=== PATIENT | male | born 1955 | race Caucasian/White ===

== ENCOUNTER 2016-05-12 15:55 | Inpatient (IN) ==
[2016-05-12] MEDS ORDERED: MAGNESIUM SULF RIDER 2 GM in PREMIX 1 EACH IV PRN ×2 (16:07→17:23)
[2016-05-12] MEDS ORDERED: MAGNESIUM SULF RIDER 4 GM in PREMIX 1 EACH IV PRN (16:07)
[2016-05-12] MEDS ORDERED: DEXTROSE 50% 25 GM/50 ML VIAL IV PRN (16:07)
[2016-05-12] MEDS ORDERED: GLUCAGON 1 MG VIAL IM PRN (16:07)
[2016-05-12] MEDS ORDERED: ONDANSETRON 4 MG/2 ML VIAL IV PRN (16:07)
[2016-05-12 17:09] LABS: Basophils # 0.1 10*3/uL (0.0-0.2); Basophils % 0.7 % (0.0-0.8); Eosinophils # 0.8 10*3/uL (0.0-0.87); Eosinophils % 9.6 % (0.00-10.9); Hematocrit 37.8 VOL% (42.0-52.0); Hemoglobin 12.4 GM/DL (14.0-18.0); Immature Granulocytes % 0.2 %; Immature Granulocytes Absolute 0.02 #; Lymphocytes # 2.4 10*3/uL (1.4-4.0); Lymphocytes % 28.8 % (21.2-54.2); Mean Corpuscular HGB Conc 32.8 GM/DL (32-36); Mean Corpuscular Hemoglobin 28 PG (27-34); Mean Corpuscular Volume 86.3 FL (87-102); Mean Platelet Volume 9.7 FL (9.6-12.0); Monocytes # 0.5 10*3/uL (0.11-0.8); Monocytes % 6.4 % (1.7-12.7); Neutrophils # 4.5 10*3/uL (1.4-7.4); Neutrophils % 54.3 % (38.7-73.9); Platelet Count 187 T/CUMM (130-400); Red Blood Count 4.38 MC/CUMM (3.8-5.5); Red Cell Distribution Width 13.3 % (9.3-17.3); White Blood Count 8.3 T/CUMM (4-12)
[2016-05-12] MEDS ORDERED: NITROGLYCERIN SL 0.4 MG TABLET SL PRN (17:21)
[2016-05-12] MEDS ORDERED: IBUPROFEN 600 MG TABLET PO PRN (17:21)
[2016-05-12] MEDS ORDERED: POTASSIUM CHLORIDE RIDER 10 MEQ in PREMIX 1 EACH IV PRN (17:23)
[2016-05-12] MEDS ORDERED: diphenhydrAMINE CAP 50 MG CAPSULE PO ONE (17:24)
[2016-05-12] MEDS ORDERED: DIAZEPAM 5 MG TABLET PO ONE (17:25)
[2016-05-12] MEDS: ENOXAPARIN 100 MG/ML SYRINGE SUBCUT SCH (17:25)
[2016-05-12] MEDS ORDERED: SODIUM CHLORIDE 0.45% 1,000 ML IV SCH (17:30)
[2016-05-12] MEDS: MORPHINE 2 MG/1 ML SYRINGE IV PRN ×2 (17:38→21:32)
[2016-05-12] MEDS: SODIUM CHLORIDE 0.9% 1,000 ML IV SCH (17:42)
[2016-05-12 17:53] LABS: Bilirubin,Total 0.6 MG/DL (0.2-1.0); Calcium 8.8 MG/DL (8.5-10.1); Osmolality,Calculated 307.4 MOS/KG (273-304); Potassium 4.8 MMOL/L (3.5-5.1)
[2016-05-12 17:56] LABS: Troponin I Only 0.073 NG/ML (0.00-0.045)
--- NOTE | 2016-05-12 19:04 | EKG Report ---
Stationary ECG Study [facility] Test Date: 05/12/2016 7:03:14 PM Pat Name: FREDERIC YEAGER Department: Room: 294 Gender: M Title Agent: STEPHANIE : 1955 Requested by: Rosas Jeffrey Order Number: [id number] Reading MD: CARMEN JOSÉ Intervals [place] Rate: 60 P: 44 WV: 194 QRS: 9 QRSD: 101 T: 136 QT: 408 QTc: 409 Interpretive Statements SINUS RHYTHM ST DEVIATION AND MODERATE T-WAVE ABNORMALITY, CONSIDER LATERAL ISCHEMIA Electronically Signed On 05-13-16 06:31:23 CDT by CARMEN JOSÉ [email or web address]
--- NOTE | 2016-05-12 19:10 | XRay Report ---
XR chest 1V portable Indication: SOB, chest pain Comparison: Chest x-ray dated October 30, 2015 Technique: Frontal views of the chest Findings: Heart size appears within normal limits. Chronic change of the lungs without focal consolidation, pleural effusion, or pneumothorax. Osseous and surrounding soft tissue structures appear grossly unchanged. IMPRESSION: No acute cardiopulmonary process demonstrated. PROCEDURE INTERPRETED AT [facility] DEPARTMENT OF RADIOLOGY Final Report Signed by: Dr Adriano Martin
[2016-05-12] MEDS: ALBUTEROL/IPRATROPIUM 3 ML NEB RESP TX SCH (19:12)
[2016-05-12] MEDS: BUDESONIDE 0.5 MG/2 ML NEB RESP TX SCH (19:12)
[2016-05-12] MEDS: MONTELUKAST 10 MG TABLET PO SCH (21:34)
[2016-05-12] MEDS: DOCUSATE SODIUM 100 MG CAPSULE PO SCH (21:34)
[2016-05-12] MEDS: ZALEPLON 5 MG CAPSULE PO PRN (21:34)
[2016-05-12] MEDS: ROSUVASTATIN 20 MG TABLET PO SCH (21:34)
[2016-05-12] MEDS: CARVEDILOL 25 MG TABLET PO SCH (21:34)
[2016-05-12] MEDS: PANTOPRAZOLE 40 MG TABLET PO SCH (21:34)
[2016-05-12] MEDS: INSULIN GLARGINE 100 UNIT/ML SUBCUT SCH (21:35)
[2016-05-12] MEDS: INSULIN REGULAR 100 UNIT/ML SUBCUT SCH (21:36)
[2016-05-13] MEDS: ALBUTEROL/IPRATROPIUM 3 ML NEB RESP TX SCH ×4 (00:39→20:58)
[2016-05-13] MEDS: SODIUM CHLORIDE 0.9% 1,000 ML IV SCH ×3 (01:34→21:43)
[2016-05-13] MEDS: MORPHINE 2 MG/1 ML SYRINGE IV PRN ×2 (01:35→10:41)
[2016-05-13 01:54] LABS: Calcium 8.4 MG/DL (8.5-10.1); Osmolality,Calculated 307.1 MOS/KG (273-304); Potassium 4.3 MMOL/L (3.5-5.1)
[2016-05-13 01:58] LABS: Risk Ratio 2.61; VLDL CHOLESTEROL 26.8 MG/DL
--- NOTE | 2016-05-13 07:26 | EKG Report ---
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
[2016-05-13] MEDS: BUDESONIDE 0.5 MG/2 ML NEB RESP TX SCH ×2 (07:50→20:58)
[2016-05-13] MEDS ORDERED: hydrALAZINE 20 MG/1 ML VIAL IV PRN (08:05)
[2016-05-13] MEDS: INSULIN ASPART PROTAMINE/ASPART 70/30 100 UNIT/ML SUBCUT SCH (08:21)
[2016-05-13] MEDS: INSULIN REGULAR 100 UNIT/ML SUBCUT SCH ×4 (08:21→21:42)
--- NOTE | 2016-05-13 08:24 | Cardiology Progress Note ---
Assessment and Plan - Time spent with patient Time spent with patient: Less than 30 minutes (1) CAD (coronary artery disease) Status: Chronic Assessment and plan: Known coronary disease. 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 Herndon. He was admitted directly from clinic yesterday with plans for cardiac catheterization this afternoon for concern of angina. During the night, patient continued to have intermittent episodes of chest fullness radiating to the left arm. Morphine has improved the discomfort. However, this morning the chest discomfort has returned. Located in the left chest area and radiating down the left arm. He did have nausea and vomiting associated with this. He rated the discomfort as a 7 on a scale of 1-10 however at this point it is improved to a 2. Patient's blood pressure is elevated at 170/88. He is being given IV hydralazine now. This morning, he has had full strength aspirin, continue with betablockade, lipid lowering agent, nitrates. He is being prepared for heart catheterization at this time. IVP DYE ALLERGY PROCOTOL in place Last heart catheterization October 23, 2015: 1. LV gram not done. The this was a save contrast of his renal dysfunction.. 2. LVEDP upper is normal at 16 mmHg. 3. No gradient across the aortic valve 4. Right coronary with diffuse atherosclerotic disease 10-20% proximally and up to 50% distally. 5. Left main coronary artery is widely patent. 6. Circumflex artery with 50-60% mid stenosis 7. LAD with a long lesion of 99% and CHRIS 1 flow. Second diagonal with diffuse high-grade stenosis of 90 sent 8. Successful intervention with stenting of the proximal/mid LAD of 99% to 0% residual stenosis and initially CHRIS 1 flow to CHRIS-3 flow. 9. Right compromise widely patent successful Angio-Seal hemostasis. Exam (Progress Note) - Constitutional Vitals: Period Temp Pulse Resp BP Sys/Santiago Pulse Ox Last 24 Hr 96.6 F-98.4 F 58-69 17-20 150-171/61-86 95-100 Exam: General: [Appears well with no apparent distress.] [Pleasant and cooperative. ] [Appears comfortable.] HEENT: [PERRL, normocephalic, atraumatic. Mucous membranes moist. No jaundice noted. Conjunctiva moist and clear, sclerae anicteric] Neck: No JVD/HJR, no thyromegaly or lymphadenopathy noted. No carotid bruit appreciated Cardiac: [Regular rate and rhythm.] [No murmur rub or gallop.] Lungs: [Clear to auscultation without accessory muscle use to assist the respiratory pattern.] Oxygen in use via nasal cannula Abdomen: Soft, bowel sounds normoactive. Nontender and nondistended. No abdominal bruit or thrill noted. No masses noted. Musculoskeletal: No fluid collection. Decreased range of motion is noted. Extremities: No clubbing, cyanosis noted. [ No edema noted.] Upper extremity pulses 2+. Lower extremity pulses 2+. Capillary refill less than 3 seconds. Skin: No unusual lesions or rashes. No skin breakdown appreciated. Neuro: Awake, alert and oriented 3. Moves all extremities well without hemiparesis or paralysis. No essential tremor is appreciated. Result/EKG - Labs CBC & BMP: 05/12/16 16:57 05/13/16 01:02 Lab Results: I have reviewed the past 24 hour labs Labs: Laboratory Results - last 24 hr 05/12/16 05/12/16 05/12/16 16:57 16:57 16:57 WBC 8.3 RBC 4.38 Hgb 12.4 L Hct 37.8 L MCV 86.3 L MCH 28 MCHC 32.8 RDW 13.3 Plt Count 187 MPV 9.7 Neut % (Auto) 54.3 Lymph % (Auto) 28.8 Wise % (Auto) 6.4 Eos % (Auto) 9.6 Baso % (Auto) 0.7 Neut # (Auto) 4.5 Lymph # (Auto) 2.4 Wise # (Auto) 0.5 Eos # (Auto) 0.8 Baso # (Auto) 0.1 Immature Gran % 0.2 Nucleated RBC % 0.0 Immature Gran # 0.02 Nucleated RBCs # 0.00 Sodium 147 H Potassium 4.8 Chloride 110 H Carbon Dioxide 25 Anion Gap 16.8 H BUN 44 H Creatinine 2.60 H GFR Calculation 72 BUN/Creatinine Ratio 16.00 Glucose 182 H POC Glucose Calculated Osmolality 307.4 H Calcium 8.8 Magnesium 2.0 Total Bilirubin 0.60 AST 17 ALT 24 Alkaline Phosphatase 85 Troponin I 0.073 H B-Natriuretic Peptide 103 H Total Protein 7.0 Albumin 4.0 Globulin 3.0 Albumin/Globulin Ratio 1.3 Triglycerides Cholesterol LDL Cholesterol VLDL Cholesterol HDL Cholesterol Heart Disease Risk Ratio 05/12/16 05/12/16 05/13/16 17:38 21:27 01:02 WBC RBC Hgb Hct MCV MCH MCHC RDW Plt Count MPV Neut % (Auto) Lymph % (Auto) Wise % (Auto) Eos % (Auto) Baso % (Auto) Neut # (Auto) Lymph # (Auto) Wise # (Auto) Eos # (Auto) Baso # (Auto) Immature Gran % Nucleated RBC % Immature Gran # Nucleated RBCs # Sodium Potassium Chloride Carbon Dioxide Anion Gap BUN Creatinine GFR Calculation BUN/Creatinine Ratio Glucose POC Glucose 179 H 93 Calculated Osmolality Calcium Magnesium Total Bilirubin AST ALT Alkaline Phosphatase Troponin I 0.103 H D B-Natriuretic Peptide Total Protein Albumin Globulin Albumin/Globulin Ratio Triglycerides Cholesterol LDL Cholesterol VLDL Cholesterol HDL Cholesterol Heart Disease Risk Ratio 05/13/16 05/13/16 05/13/16 01:02 01:02 07:32 WBC RBC Hgb Hct MCV MCH MCHC RDW Plt Count MPV Neut % (Auto) Lymph % (Auto) Wise % (Auto) Eos % (Auto) Baso % (Auto) Neut # (Auto) Lymph # (Auto) Wise # (Auto) Eos # (Auto) Baso # (Auto) Immature Gran % Nucleated RBC % Immature Gran # Nucleated RBCs # Sodium 149 H Potassium 4.3 Chloride 112 H Carbon Dioxide 25 Anion Gap 16.3 H BUN 41 H Creatinine 2.40 H GFR Calculation 34 BUN/Creatinine Ratio 17.00 Glucose 129 H POC Glucose 110 H Calculated Osmolality 307.1 H Calcium 8.4 L Magnesium 2.0 Total Bilirubin AST ALT Alkaline Phosphatase Troponin I B-Natriuretic Peptide Total Protein Albumin Globulin Albumin/Globulin Ratio Triglycerides 134 Cholesterol 107 LDL Cholesterol 45.0 VLDL Cholesterol 26.8 HDL Cholesterol 41 Heart Disease Risk Ratio 2.61 - EKG EKG results: interpreted by me EKG shows: sinus rhythm
[2016-05-13] MEDS ORDERED: NITROGLYCERIN 2% OINT 1 INCH/GM PACK TOP ONE (08:25)
[2016-05-13] MEDS ORDERED: diphenhydrAMINE CAP 50 MG CAPSULE ONE (08:26)
[2016-05-13] MEDS ORDERED: methylPREDNISolone SOD SUC 125 MG/2 ML VIAL IV ONE (08:27)
[2016-05-13] MEDS ORDERED: DIAZEPAM 5 MG TABLET ONE ×2 (08:27→15:28)
[2016-05-13] MEDS ORDERED: methylPREDNISolone SOD SUC 125 MG/2 ML VIAL IV SCH (08:30)
[2016-05-13] MEDS: NITROGLYCERIN 2% OINT 1 INCH/GM PACK TOP SCH ×3 (08:35→21:44)
[2016-05-13] MEDS ORDERED: DIAZEPAM 5 MG TABLET PO ONE (08:45)
[2016-05-13] MEDS: ISOSORBIDE MONONITRATE 30 MG TABLET PO SCH (08:48)
[2016-05-13] MEDS: PRASUGREL 10 MG TABLET PO SCH (08:49)
[2016-05-13] MEDS: CARVEDILOL 25 MG TABLET PO SCH ×2 (08:50→21:41)
[2016-05-13] MEDS: POTASSIUM CHLORIDE 20 MEQ TABLET PO SCH (08:53)
[2016-05-13] MEDS: FAMOTIDINE 20 MG TABLET PO SCH ×3 (08:57→21:41)
[2016-05-13] MEDS ORDERED: ASPIRIN EC 81 MG TABLET PO SCH (09:00)
[2016-05-13] MEDS ORDERED: THEOPHYLLINE ER (24 HR) 300 MG CAPSULE PO SCH (09:00)
[2016-05-13 09:14] LABS: INR 1.4; PT Patient Result 15.6 SECS
[2016-05-13] MEDS ORDERED: SODIUM CHLORIDE 0.9% 1,000 ML IV SCH (09:30)
[2016-05-13] MEDS: ACETAMINOPHEN 325 MG TABLET PO SCH ×2 (10:13→21:41)
[2016-05-13] MEDS: traMADol 50 MG TABLET PO SCH ×2 (10:14→21:40)
--- NOTE | 2016-05-13 13:02 | History and Physical Update ---
Sedation H&P Update - History and Physical H&P was reviewed, the patient examined and there: are no changes in the patients condition since last H&P was completed. - Dictation Physical: refer to scanned H&P - Physical Exam Mental Status: alert and oriented Heart: regular rate and rhythm Lung: clear to auscultation Abdomen: within normal limits Vitals: within normal limits History and Physical Changes: None - Sedation Plan for Sedation: moderate Patient Consent: Procedure disscussed with patient and patinet has consented., Risks and benefits were discussed with patient,including infection,, bleeding, injury to surrounding structures, seizure, temporary nerve, Patient understands and accepts potential risks/benefits and agrees to, proceed. ASA Class: III Airway Assessment: Class III: Soft palate, base of uvula visible
--- NOTE | 2016-05-13 13:03 | Event Note ---
Patient on cortices and chest pain of anginal quality. His troponins are minimally increased and not an x-ray diagnostic. He has elevated creatinine. I discussed with he and his as well as other family members his present situation of chest pain as well as his renal dysfunction. I discussed with him his need for cardiac catheterization and possible percutaneous intervention. Discussed with them in great detail how the Procedure as well as the indications and risk. I discussed cardiac catheterization and percutaneous coronary intervention with the patient and available family. I reviewed with them the indications for the procedure and the basis of how the procedure would be carried out. I also reviewed with them the risk of the procedure which include but not necessarily limited to access site bleeding, bruising, pain, swelling or vascular injury that may require emergency vascular surgery, blood transfusion, or thrombin injection. Also discussed the possibility of stroke, myocardial infarction, arrhythmia which may require electrocardioversion, and the possibility of dye reaction that would require medical therapy. Also discussed the possibility of coronary artery injury, ruptured, closure or perforation that may require emergency bypass surgery. We also discussed the possibility of from a major complication. I also discussed with him and his situation with his elevated creatinine and renal dysfunction he is at significant risk for acute renal failure that may require dialysis or other treatment. They voice understanding and agree to proceed.
[2016-05-13] MEDS: GABAPENTIN 100 MG CAPSULE PO SCH ×2 (15:00→21:41)
[2016-05-13] MEDS: diphenhydrAMINE CAP 50 MG CAPSULE PO SCH ×2 (15:24→21:40)
[2016-05-13] MEDS: methylPREDNISolone SOD SUC 125 MG/2 ML VIAL IV SCH ×2 (15:26→19:39)
[2016-05-13] MEDS ORDERED: MIDAZOLAM 2 MG/2 ML VIAL ONE (15:58)
[2016-05-13] MEDS ORDERED: fentaNYL 100 MCG/2 ML VIAL ONE (15:58)
[2016-05-13] MEDS ORDERED: LIDOCAINE 1% 20 ML VIAL ONE (15:58)
[2016-05-13] MEDS: DOCUSATE SODIUM 100 MG CAPSULE PO SCH ×2 (16:17→21:41)
[2016-05-13] MEDS ORDERED: DEXTROSE 50% 25 GM/50 ML VIAL IV PRN (16:34)
[2016-05-13] MEDS ORDERED: GLUCAGON 1 MG VIAL IM PRN (16:34)
--- NOTE | 2016-05-13 16:43 | Operative Note ---
Date of procedure: 05/13/16 Procedure Preformed: Left heart catheterization Surgeon / Physician: Rosas Herndon Post-op diagnosis: same Findings: Patient with stable LAD stent with moderate circumflex artery and LAD disease. Diffuse distal LAD stenosis. Specimens: none sent Estimated blood loss: minimal Condition: stable Anesthesia: local, conscious sedation Disposition: floor
--- NOTE | 2016-05-13 16:45 | Cardiac Catheterization ---
Date of Procedure:: 05/13/16 Pre-op Diagnosis: Known coronary disease having persistent chest pain. Post-op diagnosis: same Procedure: LEFT HEART CATHERIZATION History: She is going on man with chest pain of anginal quality with known coronary disease having prior intervention. Patient now with persistent chest pain for car catheterization. Pre-Op diagnosis: Known coronary disease with angina symptomatology for car catheterization. Postoperative diagnosis: Coronary disease but disease is unchanged and stents widely patent. Procedures: 1. Left heart catheterization. 2. Left ventricular angiogram. 3. Selective left and right coronary angiograms. 4. Right common femoral artery angiogram with Angio-Seal hemostasis. Equipment: 6 Macedonian arterial sheath, 6 Macedonian diagnostic pigtail catheter, JL4 and JR4 diagnostic catheters. A 6 Macedonian Angio-Seal hemostatic device. Medications: Preoperative Benadryl and Valium given by mouth. Lidocaine 1% local anesthesia 10 mls administered by myself. Intraprocedure patient received Versed 2 mgs IVP, fentanyl 100 mcg IVP. Complications: None immediate. Contrast: Visipaque 99 milliliters. Description of procedure: After informed consent the patient was given preoperative medications and brought to the catheterization laboratory where their right groin was prepped and draped in usual fashion. IV sedation was then obtained after which local anesthesia was administered at the right groin over the right common femoral artery. Using modified Seldinger technique the right common femoral artery was cannulated with 6 Macedonian arterial sheath placed. The pigtail catheter was then advanced through the sheath in a retrograde approach through the aorta to the aortic valve. The catheter was advanced through the aortic valve where left ventricular pressures were measured. The catheter was then pulled back into the aortic root and pressures measured. The catheter was then advanced across the aortic valve into the left ventricle where left ventricular angiogram was obtained in the right anterior oblique view. The pigtail catheter was then removed. The JL4 diagnostic coronary catheter was then advanced through the sheath in a retrograde approach and used to cannulate the left coronary artery of which angiograms were obtained in multiple projections. This catheter was then removed. The JR 4 diagnostic coronary catheter was then advanced retrograde through the aorta and used to cannulate the right coronary artery of which angiograms were obtained in multiple projections. Angiograms were then reviewed and discussed with another nutritionist. The right coronary catheter was removed. Angiogram of the right common femoral artery was obtained by direct injection to the sheath with contrast after which Angio-Seal hemostasis then obtained of this vessel. There were no immediate complications. Hemodynamic data: LV 134/-6 , EDP 6 ; AO root 126/55 , mean 83 . Review of tracings reveals no real gradient across the aortic valve. Left ventricular angiogram: This was not done secondary to the patient's renal dysfunction and to save contrast. Left main coronary artery angiogram: Left main coronary is patent and without stenosis. Left anterior descending artery angiogram: The LAD is a medium caliber vessel extends around the apex posteriorly. He has diffuse calcification especially proximal mid vessel. Diagonal branches are small caliber vessels. The proximal LAD stent is widely patent. In the distal LAD there is diffuse coronary disease up to 80% stenosis. This though is his vessel that is 2.0 or less. This is unchanged from prior cardiac catheterization films. Circumflex artery angiogram: Circumflex arteries immediate R size vessel with a medium caliber first obtuse marginal branch and distally gives rise to a medium to large size obtuse marginal branches to multiple branches. Circumflex terminates as form small third obtuse marginal branch. Proximal circumflex artery has a 50-60% stenosis with CHRIS-3 flow. The first obtuse marginal branch is a small medium caliber vessel is noted and has a 70% ostial stenosis. In review of old car catheterization films this is unchanged. Right coronary artery angiogram: RCA is a medium caliber dominant vessel. This vessel has some proximal 30% stenosis and is tortuous. There is some spasm with the catheter. Distally there was 50% stenosis at worst. In review of old cardiac catheterization films this is unchanged. Right common femoral artery angiogram: Right common for artery is patent successful Angio-Seal hemostasis. Impression: 1. Left ventricular angiogram not done in order to preserve and minimize contrast with his renal dysfunction. 2. LVEDP is normal at 6 mmHg. 3. There is no gradient across the aortic valve of any significance. 4. Right coronary with proximal 30% stenosis and distal stenosis to less than 50% stenosis. In comparison O Varun is unchanged. 5. Left main coronary artery is widely patent. 6. The LAD proximal stent is widely patent. The distal vessel with diffuse high-grade stenosis up to 80%. This is unchanged and prior cardiac catheterization films. 7. Circumflex artery with proximal stenosis of 50-60%. Ostial first obtuse marginal branch with 70% stenosis. This is unchanged from prior studies. 8. Right cuff for artery is widely patent successful Angio-Seal hemostasis. Discussion: Patient needs aggressive risk factor modification be monitored cart catheterization and look for other sources of his chest pain. Implants: None Anesthesia: local, moderate conscious sedation Surgeon / Physician: Rosas Herndon Worm Sorter: other (Nikhil Lopez RT) Estimated blood loss: minimal Specimens: none sent Condition: stable Disposition: floor - Medications / Follow-up
[2016-05-13] MEDS ORDERED: INSULIN ASPART PROTAMINE/ASPART 70/30 100 UNIT/ML SUBCUT SCH (17:00)
[2016-05-13] MEDS: ENOXAPARIN 100 MG/ML SYRINGE SUBCUT SCH (19:39)
--- NOTE | 2016-05-13 20:15 | Event Note ---
The patient doing well post catheterization earlier this evening. We'll do a ultrasound gallbladder tomorrow. He may need GI evaluation is to be done as an outpatient. Discussed this with the family was present.
[2016-05-13] MEDS: PANTOPRAZOLE 40 MG TABLET PO SCH (21:40)
[2016-05-13] MEDS: ZALEPLON 5 MG CAPSULE PO PRN (21:40)
[2016-05-13] MEDS: ROSUVASTATIN 20 MG TABLET PO SCH (21:40)
[2016-05-13] MEDS: ASPIRIN EC 325 MG TABLET PO SCH (21:41)
[2016-05-13] MEDS: INSULIN GLARGINE 100 UNIT/ML SUBCUT SCH (21:41)
[2016-05-13] MEDS: MONTELUKAST 10 MG TABLET PO SCH (21:41)
[2016-05-13] MEDS: amLODIPine 5 MG TABLET PO SCH (21:42)
[2016-05-13] MEDS ORDERED: WARFARIN 5 MG TABLET PO SCH (22:48)
[2016-05-14] MEDS: NITROGLYCERIN 2% OINT 1 INCH/GM PACK TOP SCH ×2 (00:31→07:29)
[2016-05-14] MEDS: methylPREDNISolone SOD SUC 125 MG/2 ML VIAL IV SCH ×2 (00:32→08:48)
[2016-05-14] MEDS: diphenhydrAMINE CAP 50 MG CAPSULE PO SCH ×2 (00:32→07:29)
[2016-05-14] MEDS: ALBUTEROL/IPRATROPIUM 3 ML NEB RESP TX SCH ×2 (00:40→07:49)
[2016-05-14] MEDS: SODIUM CHLORIDE 0.9% 1,000 ML IV SCH (01:20)
[2016-05-14 05:49] LABS: INR 1.4
[2016-05-14 06:14] LABS: Calcium 7.9 MG/DL (8.5-10.1); Osmolality,Calculated 313.8 MOS/KG (273-304); Potassium 4.6 MMOL/L (3.5-5.1)
--- NOTE | 2016-05-14 07:19 | Event Note ---
Patient is not in the room at this time. He is in radiology for results size gallbladder. His was his concern is been little anxious. She also states she's had cervical neck disease and surgery previously that caused arm discomfort and tingling similar to what he is having now. If his gallbladder is okay without stones or other issues then he can possibly be discharged and follow-up either with GI medicine or Dr. Woodward his primary care physician. He may also need to have his cervical spine reevaluated in this can be done by Dr. Woodward his PCP. If he is stable this morning is certainly be discharged and I'll leave this up to the service. I discussed our plans with the since the patient is not present at this time.
[2016-05-14] MEDS: BUDESONIDE 0.5 MG/2 ML NEB RESP TX SCH (07:49)
--- NOTE | 2016-05-14 08:22 | Ultrasound Report ---
Exam: US gallbladder Date: 05/14/2016 4:00 AM Comparison: None Indication: Right upper quadrant pain Technique:[Transabdominal real-time scans were taken in the right upper quadrant. Ultrasound images were captured and stored.] Findings: No definite gallbladder pathology identified. CBD is normal in size measuring 4.3 mm. The liver is normal in size with no masses. Right kidney measures 94 mm in length with no mass or hydronephrosis. The visualized pancreas and aorta have an unremarkable appearance. The pancreas, aortic bifurcation, and IVC are obscured by bowel gas. Color-flow noted in the portal vein. Impression: No definite right upper quadrant pathology identified. PROCEDURE INTERPRETED AT [facility] DEPARTMENT OF RADIOLOGY Final Report Signed by: Dr. Yusra Franklin
--- NOTE | 2016-05-14 08:27 | Nephrology Consult Note ---
History of Present Illness Chief complaint: CKD History of present illness: Mr. Moya is a 60 year old male with known chronic renal impairment. He is followed by Dr. Batres and was admitted with chest pain. He is undergone cardiac catheterization and found no flow-limiting lesions. Gallbladder ultrasound done this morning demonstrates no gallbladder pathology. Creatinine is 2.8 which is in the same range as prior to contrast. His chest is clear and his heart without rub or gallop he has no peripheral edema. Impression chronic renal impairment #2 history of coronary artery disease with coronary stent placement. Recent cath without flow restricting lesion per patient. #3 chronic kidney disease #4 diabetes mellitus Plan okay with us to go home. Patient would like to be discharged. Home Medications Medication Instructions Recorded Confirmed Type Insulin Glargine [Lantus] 22 unit SUBCUT BEDTIME 01/31/15 10/28/15 History Acetaminophen Tab [Tylenol Tab] 650 mg PO Q6H PRN #0 tablet 02/02/15 10/28/15 Rx Albuterol/Ipratropium Neb [Duoneb] 3 ml RESP TX RT Q6H #90 02/02/15 10/28/15 Rx nebulization solution Budesonide Neb [Pulmicort Respules] 0.25 mg RESP TX RT BID #60 02/02/15 Rx nebulizer solution Ibuprofen Tab [Motrin Tab] 600 mg PO Q6H PRN #0 tablet 02/02/15 10/28/15 Rx Insulin Aspart Prot/Asp 70/30 28 unit SUBCUT DAILY W/SUPPER 10/21/15 10/28/15 History [NovoLOG Mix 70/30] Insulin Aspart Prot/Asp 70/30 32 units SUBCUT DAILY W/BREAKFAST 10/21/15 History [NovoLOG Mix 70/30] Montelukast Tab [Singulair Tab] 10 mg PO QPM 10/21/15 05/12/16 History Aspirin EC Tab 81 mg PO DAILY tablet 10/26/15 05/12/16 Rx Carvedilol [Coreg] 25 mg PO BID tablet 10/26/15 05/12/16 Rx Isosorbide Mononitrate [Imdur] 30 mg PO DAILY #30 tablet 10/26/15 10/28/15 Rx Nitroglycerin Sl Tab [Nitrostat] 0.4 mg SL Q5M PRN #0 tablet 10/26/15 05/12/16 Rx Potassium Chloride Cap/Tab [K Dur] 10 meq PO DAILY #20 tablet 10/26/15 10/28/15 Rx Rosuvastatin [Crestor] 40 mg PO BEDTIME #30 tablet 10/26/15 05/12/16 Rx Theophylline ER Cap (24 Hr) 200 mg PO DAILY #30 capsule 10/26/15 10/28/15 Rx [Geoff-24] cloNIDine TAB [Catapres Tab] 0.1 mg PO BID #60 tablet 10/26/15 05/12/16 Rx Prasugrel [Effient] 10 mg PO DAILY #30 tablet 10/30/15 05/12/16 Rx Warfarin [Coumadin] 7.5 mg PO DAILY@1800 05/12/16 05/12/16 History Warfarin [Coumadin] 10 mg PO DAILY@1800 05/12/16 05/12/16 History Allergies Allergy/AdvReac Type Severity Reaction Status Date / Time meperidine [From Demerol] Allergy Intermediate HIVES Verified 10/21/15 16:20 Iodinated Contrast Media - Allergy Mild HIVES Verified 10/21/15 16:20 IV Dye Medical,Surgical,& Family Hx - Medical History Cardio: History of: CAD, Hypertension Psychological: History of: Anxiety Disorders, Depression Neurology: History of: Cerebrovascular Accident (2011) HEENT: History of: Ear Problem (has retinal issue secondary to his diabetes.) Endocrine: History of: Diabetes Mellitus (IDDM), Dyslipidemia Respiratory: History of: Asthma No history of: Obstructive Sleep Apnea (STATES THAT HE HAD A NEGATIVE SLEEP STUDY) Renal: History of: Renal Problems (dr price and has chronic renal insufficiency) Genitourinary: History of: Kidney Stones Gastrointestinal: History of: GERD - Surgical History Cardiac Surgeries: Sugical HX of: Cardiac Catheterization (over 10 years ago at [facility]), Carotid Endarterectomy Patient Denies: Cardiac Surgery Thoracic Surgeries: Patient denies;: Lobectomy Neurologic Surgeries: Patient denies: Neurologic Surgery HEENT Surgeries: Surgical HX of: Carotid Endarterectomy Abdominal Surgeries: Surgical HX of: Colonoscopy Patient denies: Abdominal Surgery Reproductive Surgeries: Patient denies;: Genitourinary Surgery Orthopedic Surgeries: Surgical HX of;: Orthopedic Surgery (shoulder surgery on both), Total Knee Replacement (both knees) - Family History Family History: Reports;: Family Diabetes (brothers, mother, son), Family Heart Disease (mother, brother age 59 of myocardial infarction), Family Hypertension (mother), Family Stroke (mother) - Social History Smoking Status: Never smoker Frequency of Alcohol Use: None Type of Drug Use: None Review of Systems 12 point system: reviewed and no additional remarkable complaints except as stated Exam - Vital Signs Vital signs: Period Temp Pulse Resp BP Sys/Santiago Pulse Ox Last 24 Hr 96.1 F-98.2 F 71-88 14-20 133-185/63-84 92-100 - General Appearance General appearance: well-developed, well-nourished, appears started age EENT: ATNC Neck: no JVD, no thyromegaly, no carotid bruit, supple Respiratory: no kyphosis, no scoliosis Cardiology: no murmurs, no rub, no gallops, no edema, regular rate, regular rhythm, normal S1, normal S2 Gastrointestinal: normoactive bowel sounds Integumentary: no rash, warm and dry Neurologic: no focal deficit, no asterixis, alert and oriented x3, reflexes 2+ and symmetric, gait normal, strength 5/5 Musculoskeletal: no deformities, no erythema, no cyanosis, no clubbing Psychiatric: mood/affect appropriate, cooperative Results - Labs CBC & BMP: 05/12/16 16:57 05/14/16 05:14 Assessment and Plan (1) Chronic kidney disease (CKD) stage G3a/A1, moderately decreased glomerular filtration rate (GFR) between 45-59 mL/min/1.73 square meter and albuminuria creatinine ratio less than 30 mg/g Status: Acute Current Visit: No (2) Diabetes Status: Chronic Current Visit: No Qualifiers: Diabetes mellitus type: type 2 Chronic kidney disease stage: stage 3 ( moderate) (3) Chest pain Status: Resolved Current Visit: No Specialty Discharge - Follow Up or Referrals
[2016-05-14 08:34] VITALS: BP 192/85
[2016-05-14] MEDS: INSULIN ASPART PROTAMINE/ASPART 70/30 100 UNIT/ML SUBCUT SCH (08:38)
[2016-05-14] MEDS: INSULIN REGULAR 100 UNIT/ML SUBCUT SCH (08:38)
--- NOTE | 2016-05-14 08:39 | Physician Query Form ---
CLICK EDIT DOCUMENT TO SELECT QUERY ANSWER --> OK --> SIGN Mindy Tovar RN, CCDS Certified Clinical Research Professor W) [phone] (f) [phone] [email or web address] PROVIDERS: Make your selection(s) from the choices in EACH section by typing an "x" and enter comments in the comment section. Please use your independent medical judgment in providing your response. This request does not imply that any particular answer is desired or expected. CLINICAL INDICATORS: (Providers should not edit this section) The medical record indicates that the patient was admitted with chest pain, "Acute on chronic renal insufficiency", creatinine on admission was 2.60#/ on the nd creatinine of 2.80 AND GFR of 72# that decreased to 28# on the nd. ( patient was on IVF's.) Clarify which of the following most accurately represents the patient's renal status: ( ) Acute kidney injury (non-traumatic) ( ) Acute renal failure (x ) Acute renal failure with underlying Chronic Kidney Disease (CKD) - please provide stage below ( ) Acute renal failure with pathological renal lesion ( ) Acute renal failure with necrosis ( ) tubular ( ) medullary ( ) cortical ( ) CKD - please provide stage below ( ) End Stage Renal Disease ( ) Acute interstitial nephritis ( ) Hepatorenal syndrome ( ) Other, please specify: ( ) Clinically unable to determine Chronic Kidney Disease Stages Source: National Kidney Disease Foundation ( ) Stage I (eGFR > or = 90) (x ) Stage II (eGFR 60 - 89) ( ) Stage III (eGFR 30 - 59) ( ) Stage IV (eGFR 15 - 29) ( ) Stage V (eGFR < 15 or dialysis) COMMENTS: Use of terms such as suspected, likely, or probable (associated with a specific diagnosis that is being evaluated, monitored, or treated as if it exists) are acceptable and can be restated in the discharge summary if not ruled out. This was addressed in the discharge summary. JAXSOND
[2016-05-14] MEDS: ASPIRIN EC 325 MG TABLET PO SCH (08:42)
[2016-05-14] MEDS: DOCUSATE SODIUM 100 MG CAPSULE PO SCH (08:42)
[2016-05-14] MEDS: POTASSIUM CHLORIDE 20 MEQ TABLET PO SCH (08:43)
[2016-05-14] MEDS: CARVEDILOL 25 MG TABLET PO SCH (08:43)
[2016-05-14] MEDS: PRASUGREL 10 MG TABLET PO SCH (08:43)
[2016-05-14] MEDS: ISOSORBIDE MONONITRATE 30 MG TABLET PO SCH (08:43)
[2016-05-14] MEDS: GABAPENTIN 100 MG CAPSULE PO SCH (08:44)
[2016-05-14] MEDS: FAMOTIDINE 20 MG TABLET PO SCH (08:44)
[2016-05-14] MEDS: amLODIPine 5 MG TABLET PO SCH (08:44)
[2016-05-14] MEDS: ACETAMINOPHEN 325 MG TABLET PO SCH (08:45)
[2016-05-14] MEDS: traMADol 50 MG TABLET PO SCH (08:45)
[2016-05-14] MEDS ORDERED: THEOPHYLLINE ER (24 HR) 200 MG CAPSULE PO SCH (09:15)
--- NOTE | 2016-05-14 09:53 | Discharge Summary ---
Hospital Course - Hospital Course Hospital Course: 60-year-old male, followed by Dr. Herndon. Admitted directly from clinic by Dr. Herndon May 13, 2016 for chest pain concerning for angina. He underwent elective cardiac catheterization performed by Dr. Herndon May 14, 2016 with the following impression noted: Impression: 1. Left ventricular angiogram not done in order to preserve and minimize contrast with his renal dysfunction. 2. LVEDP is normal at 6 mmHg. 3. There is no gradient across the aortic valve of any significance. 4. Right coronary with proximal 30% stenosis and distal stenosis to less than 50% stenosis. In comparison O Varun is unchanged. 5. Left main coronary artery is widely patent. 6. The LAD proximal stent is widely patent. The distal vessel with diffuse high-grade stenosis up to 80%. This is unchanged and prior cardiac catheterization films. 7. Circumflex artery with proximal stenosis of 50-60%. Ostial first obtuse marginal branch with 70% stenosis. This is unchanged from prior studies. 8. Right cuff for artery is widely patent successful Angio-Seal hemostasis. Discussion: Patient needs aggressive risk factor modification be monitored cart catheterization and look for other sources of his chest pain. He tolerated the procedure well without complication was returned to our telemetry unit in stable condition. Overnight, patient has done well. Labs are stable. He has been ambulating in room without difficulty. Right groin is soft and free of hematoma or bruit. Distal pulses 3+. In detail, we discussed post cath expectations and he verbalizes understanding of this information. His understands as well. This morning, patient underwent gallbladder ultrasound which revealed no evidence of stones. We are treating his chest pain as musculoskeletal and he will be discharged home on Neurontin 100 mg orally 3 times daily 1 week, Ultram 50 mg orally twice daily 1 week, acetaminophen 325 mg orally twice daily 1 week. He has a history of cervical spine issues having had surgery some years ago. We will have him follow-up with Dr. Woodward first of next week for further workup and/or management of suspected C-spine pain. Also, we recommend that he follow-up with a household coordinator outpatient and we will arrange for an outpatient appointment as well. In the meantime, he will be discharged home on a proton pump inhibitor. Patient is being given a follow-up appoint with Dr. Herndon in approximately 1-2 weeks. Also, we asked Dr. Woodward draw a BMP and INR at the appointment. Patient has been taking his potassium 10 mEq orally daily while hospitalized. His potassium has remained normal. There was some question as to whether he should continue to take this because he believes he may have had a history of hyperkalemia in the past. At this point, I will have him take potassium chloride 10 mEq every other day and defer to Dr. Woodward management in the future. Also, check his creatinine as he has a history of chronic renal insufficiency. Patient will also resume his home medication regimen of Coumadin dosing. Patient has a history of chronic renal insufficiency, stage II. On arrival, patient had creatinine of 2.6. It decreased to 2.4 with hydration overnight. However, post-cath, a creatinine has only minimally decreased to 2.8. Dr. Small saw patient this morning and believes he is stable for discharge. 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 Having felt him at maximal medical therapy, patient is being discharged home in stable condition. He is anxious for release this morning - Time spent with patient Time with patient DS: Greater than 30 minutes Diagnosis - Discharge Diagnosis (1) CAD (coronary artery disease) Status: Chronic (2) Angina at rest Status: Resolved (3) Hypertension Status: Chronic (4) Dyslipidemia Status: Chronic (5) CRI (chronic renal insufficiency) Status: Chronic Specialty Discharge - Follow Up or Referrals Follow up with: Rosas Herndon MD [Physician] - (1-2 weeks) Adam Woodward MD [Physician] - (First of next week) Jackson Krishnan MD [Physician] - (2-3 weeks RE: non-cardiac chest pain) Discharge Plan - Discharge Data Disposition: Disch To Home/Self Care Condition at Discharge: Stable Discharge Diet: heart healthy Activity: other (Post cath expectations thoroughly discussed) Hygiene: no restrictions Weight Bearing at Discharge: other (Post cath expectations thoroughly discussed) Driving: other (Post cath expectations thoroughly discussed) Contact your physician if you experience:: fever over 101, Difficulty voiding, Redness or swelling, Nausea/Vomiting, Shortness of breath, Bleeding, pain uncontrolled by pain medications - Discharge Medications [place] Cap/Tab [Neurontin Cap/Tab] 100 mg PO TID #21 capsule Pantoprazole Tab [Protonix Tab] 40 mg PO DAILY@2100 #30 tablet traMADol TAB [Ultram] 50 mg PO BID #14 tablet Continue Insulin Glargine [Lantus] 22 unit SUBCUT BEDTIME Albuterol/Ipratropium Neb [Duoneb] 3 ml RESP TX RT Q6H #90 nebulization solution Ibuprofen Tab [Motrin Tab] 600 mg PO Q6H PRN #0 tablet PRN Reason: Fever > 100.4 Or Headache Budesonide Neb [Pulmicort Respules] 0.25 mg RESP TX RT BID #60 nebulizer solution Insulin Aspart Prot/Asp 70/30 [NovoLOG Mix 70/30] 32 units SUBCUT DAILY W/ BREAKFAST Insulin Aspart Prot/Asp 70/30 [NovoLOG Mix 70/30] 28 unit SUBCUT DAILY W/ SUPPER Montelukast Tab [Singulair Tab] 10 mg PO QPM Rosuvastatin [Crestor] 40 mg PO BEDTIME #30 tablet Aspirin EC Tab 81 mg PO DAILY tablet Carvedilol [Coreg] 25 mg PO BID tablet Isosorbide Mononitrate [Imdur] 30 mg PO DAILY #30 tablet Nitroglycerin Sl Tab [Nitrostat] 0.4 mg SL Q5M PRN #0 tablet PRN Reason: Chest Pain Theophylline ER Cap (24 Hr) [Geoff-24] 200 mg PO DAILY #30 capsule cloNIDine TAB [Catapres Tab] 0.1 mg PO BID #60 tablet Prasugrel [Effient] 10 mg PO DAILY #30 tablet Warfarin [Coumadin] 7.5 mg PO DAILY@1800 Warfarin [Coumadin] 10 mg PO DAILY@1800 Changed Potassium Chloride Cap/Tab [K Dur] 10 meq PO QOTHER DAY #20 tablet Discontinued Acetaminophen Tab [Tylenol Tab] 650 mg PO Q6H PRN #0 tablet PRN Reason: Fever > 100.4 Or Headache - Follow Up or Referral Follow Up: Rsoas Herndon MD [Physician] - (1-2 weeks) Jackson Krishnan MD [Physician] - (2-3 weeks RE: non-cardiac chest pain) Adam Woodward MD [Physician] - (First of next week. BMP, Mg, CBC and INR. ) - Forms/Instructions Instructions: Coronary Artery Disease (GEN), Left Heart Catheterization (DC), Heart Healthy Diet (GEN) Exam - Constitutional Vitals: Period Temp Pulse Resp BP Sys/Santiago Pulse Ox Last 24 Hr 96.1 F-98.2 F 71-88 14-20 133-192/63-85 92-100 Exam: General: [Appears well with no apparent distress.] [Pleasant and cooperative. ] [Appears comfortable.] HEENT: [PERRL, normocephalic, atraumatic. Mucous membranes moist. No jaundice noted. Conjunctiva moist and clear, sclerae anicteric] Neck: No JVD/HJR, no thyromegaly or lymphadenopathy noted. No carotid bruit appreciated Cardiac: [Regular rate and rhythm.] [No murmur rub or gallop.] Lungs: [Clear to auscultation without accessory muscle use to assist the respiratory pattern.] Oxygen in use via nasal cannula Abdomen: Soft, bowel sounds normoactive. Nontender and nondistended. No abdominal bruit or thrill noted. No masses noted. Musculoskeletal: No fluid collection. Decreased range of motion is noted. Extremities: Right groin is soft and free of hematoma or bruit. No clubbing, cyanosis noted. [ No edema noted.] Upper extremity pulses 2+. Lower extremity pulses 3+. Capillary refill less than 3 seconds. Skin: No unusual lesions or rashes. No skin breakdown appreciated. Neuro: Awake, alert and oriented 3. Moves all extremities well without hemiparesis or paralysis. No essential tremor is appreciated. Discharge Results Procedures and tests throughout hospitalization: Pending Orders 05/15/16 04:00 BMP [Basic Metabolic Panel] IN AM PTINR [Prothrombin Time INR] IN AM 05/16/16 04:00 BMP [Basic Metabolic Panel] IN AM PTINR [Prothrombin Time INR] IN AM 05/17/16 04:00 PTINR [Prothrombin Time INR] IN AM 05/18/16 04:00 PTINR [Prothrombin Time INR] IN AM 05/19/16 04:00 PTINR [Prothrombin Time INR] IN AM 05/20/16 04:00 PTINR [Prothrombin Time INR] IN AM Labs on day of discharge: Labs from last 24 hours 05/14/16 05/14/16 05/14/16 08:05 05:14 05:14 INR 1.4 PT Patient/Control Mix 15.0 Sodium 144 Potassium 4.6 Chloride 113 H Carbon Dioxide 17 L Anion Gap 18.6 H BUN 49 H Creatinine 2.80 H GFR Calculation 28 BUN/Creatinine Ratio 17.00 Glucose 363 H POC Glucose 320 H Calculated Osmolality 313.8 H Calcium 7.9 L Theophylline 05/13/16 05/13/16 05/13/16 19:02 14:59 11:31 INR PT Patient/Control Mix Sodium Potassium Chloride Carbon Dioxide Anion Gap BUN Creatinine GFR Calculation BUN/Creatinine Ratio Glucose POC Glucose 311 H 280 H 175 H Calculated Osmolality Calcium Theophylline 05/13/16 08:00 INR PT Patient/Control Mix Sodium Potassium Chloride Carbon Dioxide Anion Gap BUN Creatinine GFR Calculation BUN/Creatinine Ratio Glucose POC Glucose Calculated Osmolality Calcium Theophylline < 2.0 L - Imaging and Cardiology Cardiology Procedure: report reviewed by me Procedure: Chest x-ray: report reviewed by me DS: Provider Date of admission: 05/12/16 16:37 Primary care physician: . No PCP Attending physician on admission: Tor Hale MD Consults: 05/13/16 10:34 Consult to Physician [CONS] Routine Comment: Consulting Provider: Talat Small Consult to Specialist Group: Nephrology When should Consulting Provider be notified: Now Person Notified: TOPHER Date Notified: 05/14/16 Time Notified: 07:55 05/13/16 16:34 Consult to Cardiac Rehabilitation [CONS] Routine Reason for Cardiac Rehabilitation: Risk Factor Modification Discharging clinician: Kaitlin Morris NP Expected date of discharge: 05/14/16
[2016-05-14] MEDS ORDERED: WARFARIN 7.5 MG TABLET PO SCH (18:00)
[2016-05-15] MEDS ORDERED: WARFARIN 5 MG TABLET PO SCH (18:00)
[2016-05-17] MEDS ORDERED: WARFARIN 5 MG TABLET PO SCH (18:00)
[2016-05-18] MEDS ORDERED: WARFARIN 5 MG TABLET PO SCH (18:00)
== END 2016-05-14 11:45 | disposition home or self-care (01) | DRG 287 ==
LOC: N.TELEN 16:37
PROVIDERS: ADMIT Internal Medicine Cardiovascular Disease; ATTEND Internal Medicine Cardiovascular Disease
PROC: CLCCHCL (ICD-10-PCS; 2016-05-13 16:15)

== ENCOUNTER 2016-12-29 06:50 | Observation (INO) ==
[2016-12-29] MEDS ORDERED: ASPIRIN 325 MG TABLET PO STA (07:10)
[2016-12-29] MEDS ORDERED: NITROGLYCERIN 2% OINT 1 INCH/GM PACK TOP STA (07:10)
[2016-12-29] MEDS ORDERED: ONDANSETRON 4 MG/2 ML VIAL IV STA (07:10)
[2016-12-29] MEDS ORDERED: MORPHINE 2 MG/1 ML SYRINGE IV PRN ×2 (07:10→08:31)
[2016-12-29] MEDS ORDERED: NITROGLYCERIN 2% OINT 1 INCH/GM PACK TOP ONE (07:16)
[2016-12-29] MEDS ORDERED: ONDANSETRON 4 MG/2 ML VIAL ONE (07:16)
[2016-12-29] MEDS ORDERED: ASPIRIN 325 MG TABLET ONE (07:16)
[2016-12-29] MEDS: NITROGLYCERIN SL 0.4 MG TABLET SL PRN ×3 (07:19→07:34)
[2016-12-29 07:32] LABS: Basophils # 0.1 10*3/uL (0.0-0.2); Basophils % 0.9 % (0.0-0.8); Eosinophils # 0.5 10*3/uL (0.0-0.87); Eosinophils % 6.3 % (0.00-10.9); Hematocrit 40.7 VOL% (42.0-52.0); Hemoglobin 13.5 GM/DL (14.0-18.0); Immature Granulocytes % 0.5 %; Immature Granulocytes Absolute 0.04 #; Lymphocytes # 1.6 10*3/uL (1.4-4.0); Lymphocytes % 20.3 % (21.2-54.2); Mean Corpuscular HGB Conc 33.2 GM/DL (32-36); Mean Corpuscular Hemoglobin 30 PG (27-34); Mean Corpuscular Volume 89.3 FL (87-102); Mean Platelet Volume 9.9 FL (9.6-12.0); Monocytes # 0.5 10*3/uL (0.11-0.8); Monocytes % 5.9 % (1.7-12.7); Neutrophils # 5.1 10*3/uL (1.4-7.4); Neutrophils % 66.1 % (38.7-73.9); Platelet Count 185 T/CUMM (130-400); Red Blood Count 4.56 MC/CUMM (3.8-5.5); Red Cell Distribution Width 13.2 % (9.3-17.3); White Blood Count 7.8 T/CUMM (4-12)
[2016-12-29 07:51] LABS: INR 1.7; PT Patient Result 17.4 SECS; Partial Thromboplastin Time 31.1 SECS (0-40)
[2016-12-29 07:54] LABS: Albumin 3.5 G/DL (3.4-5.0); Bilirubin,Total 0.5 MG/DL (0.2-1.0); Calcium 8.2 MG/DL (8.5-10.1); Magnesium 1.7 MG/DL (1.8-2.4); Osmolality,Calculated 295.3 MOS/KG (273-304); Potassium 4.9 MMOL/L (3.5-5.1)
[2016-12-29] MEDS ORDERED: ACETAMINOPHEN 325 MG TABLET PO PRN (08:31)
[2016-12-29] MEDS ORDERED: GLUCAGON 1 MG VIAL IM PRN (08:31)
[2016-12-29] MEDS ORDERED: ONDANSETRON 4 MG/2 ML VIAL IV PRN (08:31)
[2016-12-29] MEDS ORDERED: DEXTROSE 50% 25 GM/50 ML VIAL IV PRN (08:31)
[2016-12-29] MEDS ORDERED: DOCUSATE SODIUM 100 MG CAPSULE PO SCH (09:00)
[2016-12-29] MEDS ORDERED: SODIUM CHLORIDE 0.9% 1,000 ML IV SCH (09:00)
[2016-12-29] MEDS ORDERED: PANTOPRAZOLE 40 MG TABLET PO SCH (09:00)
[2016-12-29] MEDS ORDERED: ALBUTEROL/IPRATROPIUM 3 ML NEB RESP TX PRN (11:10)
[2016-12-29] MEDS ORDERED: BUDESONIDE 0.5 MG/2 ML NEB RESP TX PRN (11:10)
[2016-12-29] MEDS ORDERED: INSULIN LISPRO 100 UNIT/ML SUBCUT SCH (11:30)
[2016-12-29] MEDS ORDERED: cloNIDine 0.1 MG TABLET PO ONE (12:21)
[2016-12-29] MEDS ORDERED: CARVEDILOL 25 MG TABLET PO ONE (12:21)
[2016-12-29] MEDS ORDERED: MAGNESIUM SULF RIDER 2 GM in PREMIX 1 EACH IV ONE (16:27)
[2016-12-29] MEDS ORDERED: INSULIN ASPART PROTAMINE/ASPART 70/30 100 UNIT/ML SUBCUT SCH (17:00)
[2016-12-29 17:10] VITALS: BP 155/72
[2016-12-29] MEDS ORDERED: WARFARIN 5 MG TABLET PO SCH (18:00)
[2016-12-29] MEDS ORDERED: MONTELUKAST 10 MG TABLET PO SCH (19:00)
[2016-12-29] MEDS ORDERED: INSULIN GLARGINE 100 UNIT/ML SUBCUT SCH (21:00)
[2016-12-29] MEDS ORDERED: CARVEDILOL 25 MG TABLET PO SCH (21:00)
[2016-12-30] MEDS ORDERED: INSULIN ASPART PROTAMINE/ASPART 70/30 100 UNIT/ML SUBCUT SCH (08:00)
[2016-12-30] MEDS ORDERED: ASPIRIN EC 81 MG TABLET PO SCH (09:00)
[2016-12-30] MEDS ORDERED: GABAPENTIN 300 MG CAPSULE PO SCH (09:00)
[2016-12-30] MEDS ORDERED: WARFARIN 7.5 MG TABLET PO SCH (18:00)
== END 2016-12-29 18:25 | disposition home or self-care (01) ==
LOC: N.EDINP 06:50 → N.ED 06:50 → N.TELES 09:27
PROVIDERS: ADMIT Family Medicine; ATTEND Family Medicine

== ENCOUNTER 2018-07-02 07:48 | Inpatient (IN) ==
[2018-07-02] MEDS ORDERED: CEFTAROLINE 600 MG in SODIUM CHLORIDE 0.9% 100 ML IV STA (08:14)
[2018-07-02 08:34] LABS: Basophils # 0.1 10*3/uL (0.0-0.2); Basophils % 0.9 % (0.0-0.8); Eosinophils # 0.8 10*3/uL (0.0-0.87); Eosinophils % 12.4 % (0.00-10.9); Hematocrit 40.1 VOL% (42.0-52.0); Hemoglobin 12.7 GM/DL (14.0-18.0); Immature Granulocytes % 0.2 %; Immature Granulocytes Absolute 0.01 #; Lymphocytes # 1.2 10*3/uL (1.4-4.0); Lymphocytes % 18.5 % (21.2-54.2); Mean Corpuscular HGB Conc 31.7 GM/DL (32-36); Mean Corpuscular Volume 91.3 FL (87-102); Mean Platelet Volume 9.8 FL (9.6-12.0); Monocytes % 10.1 % (1.7-12.7); Neutrophils % 57.9 % (38.7-73.9); Platelet Count 170 T/CUMM (130-400); Red Blood Count 4.39 MC/CUMM (3.8-5.5); Red Cell Distribution Width 13.8 % (9.3-17.3); White Blood Count 6.6 T/CUMM (4-12)
[2018-07-02 08:49] LABS: Calcium 8.5 MG/DL (8.5-10.1); Osmolality,Calculated 293.8 MOS/KG (273-304)
[2018-07-02 09:09] LABS: Eosinophils 10 % (0-10); Lymphocytes 18 % (20-55); Segmented Neutrophils 62 % (50-85); Total Cells Counted 100
[2018-07-02 09:10] LABS: Hypochromasia 1+; Microcytosis 1+
[2018-07-02 09:11] LABS: Platelet Estimate Adequate
[2018-07-02] MEDS ORDERED: DEXTROSE 50% 25 GM/50 ML SYRINGE IV PRN (10:57)
[2018-07-02] MEDS ORDERED: GLUCAGON 1 MG VIAL IM PRN (10:57)
[2018-07-02] MEDS ORDERED: ACETAMINOPHEN 325 MG TABLET PO PRN (10:57)
[2018-07-02] MEDS ORDERED: ONDANSETRON 4 MG/2 ML VIAL IV PRN (10:57)
[2018-07-02] MEDS ORDERED: ALBUTEROL/IPRATROPIUM 3 ML NEB RESP TX PRN (11:00)
[2018-07-02] MEDS: ALBUTEROL/IPRATROPIUM 3 ML NEB RESP TX SCH ×2 (13:08→20:10)
[2018-07-02] MEDS: INSULIN LISPRO 100 UNIT/ML SUBCUT SCH ×5 (15:10→20:35)
[2018-07-02] MEDS: SODIUM CHLORIDE 0.45% 1,000 ML IV SCH (16:08)
[2018-07-02] MEDS: hydrALAZINE 20 MG/1 ML VIAL IV PRN (16:09)
[2018-07-02] MEDS: CARVEDILOL 25 MG TABLET PO SCH (17:20)
[2018-07-02] MEDS: methylPREDNISolone SOD SUC 40 MG/1 ML VIAL IV SCH (19:52)
[2018-07-02] MEDS: carBAMazepine 200 MG TABLET PO SCH (20:20)
[2018-07-02] MEDS: CEFTAROLINE 400 MG in SODIUM CHLORIDE 0.9% 100 ML IV SCH (20:20)
[2018-07-02] MEDS: SIMVASTATIN 10 MG TABLET PO SCH (20:21)
[2018-07-02] MEDS: cloNIDine 0.1 MG TABLET PO SCH (20:21)
[2018-07-02] MEDS: hydrALAZINE 25 MG TABLET PO SCH (20:21)
[2018-07-02] MEDS: MONTELUKAST 10 MG TABLET PO SCH (20:21)
[2018-07-02] MEDS: DOCUSATE SODIUM 100 MG CAPSULE PO SCH (20:35)
[2018-07-02] MEDS: INSULIN GLARGINE 100 UNIT/ML SUBCUT SCH (20:35)
[2018-07-03] MEDS: ALBUTEROL/IPRATROPIUM 3 ML NEB RESP TX SCH ×4 (01:50→19:29)
[2018-07-03 05:33] LABS: Basophils % 0.2 % (0.0-0.8); Eosinophils % 0.2 % (0.00-10.9); Hematocrit 40.6 VOL% (42.0-52.0); Hemoglobin 12.4 GM/DL (14.0-18.0); Immature Granulocytes % 0.5 %; Immature Granulocytes Absolute 0.02 #; Lymphocytes # 0.6 10*3/uL (1.4-4.0); Lymphocytes % 14.3 % (21.2-54.2); Mean Corpuscular HGB Conc 30.5 GM/DL (32-36); Mean Corpuscular Volume 92.3 FL (87-102); Mean Platelet Volume 9.3 FL (9.6-12.0); Monocytes % 1.9 % (1.7-12.7); Neutrophils % 82.9 % (38.7-73.9); Platelet Count 163 T/CUMM (130-400); Red Cell Distribution Width 13.6 % (9.3-17.3); White Blood Count 4.1 T/CUMM (4-12)
[2018-07-03 05:49] LABS: Calcium 8.4 MG/DL (8.5-10.1); Osmolality,Calculated 295.4 MOS/KG (273-304); Uric Acid 6.9 MG/DL (3.5-7.2)
[2018-07-03] MEDS: SODIUM CHLORIDE 0.45% 1,000 ML IV SCH ×2 (07:35→21:48)
[2018-07-03] MEDS ORDERED: RIVAROXABAN 20 MG TABLET PO SCH (09:00)
[2018-07-03] MEDS: CEFTAROLINE 400 MG in SODIUM CHLORIDE 0.9% 100 ML IV SCH ×2 (09:01→21:46)
[2018-07-03] MEDS: DOCUSATE SODIUM 100 MG CAPSULE PO SCH ×2 (09:02→21:43)
[2018-07-03] MEDS: CARVEDILOL 25 MG TABLET PO SCH ×2 (09:02→17:08)
[2018-07-03] MEDS: hydrALAZINE 25 MG TABLET PO SCH ×2 (09:02→21:43)
[2018-07-03] MEDS: carBAMazepine 200 MG TABLET PO SCH ×2 (09:03→21:43)
[2018-07-03] MEDS: ASPIRIN EC 81 MG TABLET PO SCH (09:03)
[2018-07-03] MEDS: PANTOPRAZOLE 40 MG TABLET PO SCH (09:03)
[2018-07-03] MEDS: cloNIDine 0.1 MG TABLET PO SCH ×2 (09:03→21:43)
[2018-07-03] MEDS: RIVAROXABAN 15 MG TABLET PO SCH (09:03)
[2018-07-03] MEDS: methylPREDNISolone SOD SUC 40 MG/1 ML VIAL IV SCH ×2 (09:03→21:43)
[2018-07-03] MEDS: INSULIN LISPRO 100 UNIT/ML SUBCUT SCH ×7 (10:36→21:49)
[2018-07-03] MEDS: MONTELUKAST 10 MG TABLET PO SCH (21:43)
[2018-07-03] MEDS: SIMVASTATIN 10 MG TABLET PO SCH (21:43)
[2018-07-03] MEDS: INSULIN GLARGINE 100 UNIT/ML SUBCUT SCH (21:50)
[2018-07-04] MEDS: ALBUTEROL/IPRATROPIUM 3 ML NEB RESP TX SCH ×5 (01:40→23:53)
[2018-07-04 07:31] LABS: Calcium 8.4 MG/DL (8.5-10.1); Osmolality,Calculated 299.3 MOS/KG (273-304)
[2018-07-04] MEDS: INSULIN LISPRO 100 UNIT/ML SUBCUT SCH ×7 (08:22→20:26)
[2018-07-04] MEDS: methylPREDNISolone SOD SUC 40 MG/1 ML VIAL IV SCH (08:23)
[2018-07-04] MEDS: hydrALAZINE 25 MG TABLET PO SCH ×2 (08:24→20:24)
[2018-07-04] MEDS: ASPIRIN EC 81 MG TABLET PO SCH (08:24)
[2018-07-04] MEDS: DOCUSATE SODIUM 100 MG CAPSULE PO SCH ×2 (08:24→20:24)
[2018-07-04] MEDS: carBAMazepine 200 MG TABLET PO SCH ×2 (08:24→20:23)
[2018-07-04] MEDS: CARVEDILOL 25 MG TABLET PO SCH ×2 (08:24→17:42)
[2018-07-04] MEDS: cloNIDine 0.1 MG TABLET PO SCH (08:24)
[2018-07-04] MEDS: RIVAROXABAN 15 MG TABLET PO SCH (08:24)
[2018-07-04] MEDS: PANTOPRAZOLE 40 MG TABLET PO SCH (08:25)
[2018-07-04] MEDS: CEFTAROLINE 400 MG in SODIUM CHLORIDE 0.9% 100 ML IV SCH ×2 (12:00→23:53)
[2018-07-04] MEDS ORDERED: INSULIN LISPRO 100 UNIT/ML SUBCUT ONE (13:36)
[2018-07-04] MEDS ORDERED: FUROSEMIDE 20 MG/2 ML VIAL IV ONE (13:41)
[2018-07-04] MEDS ORDERED: cloNIDine 0.1 MG TABLET PO ONE (14:00)
[2018-07-04 16:23] LABS: Calcium 8.6 MG/DL (8.5-10.1); Osmolality,Calculated 301.8 MOS/KG (273-304)
[2018-07-04] MEDS: MONTELUKAST 10 MG TABLET PO SCH (20:23)
[2018-07-04] MEDS: hydrALAZINE 20 MG/1 ML VIAL IV PRN (20:23)
[2018-07-04] MEDS: SIMVASTATIN 10 MG TABLET PO SCH (20:24)
[2018-07-04] MEDS: INSULIN GLARGINE 100 UNIT/ML SUBCUT SCH (20:27)
[2018-07-05] MEDS ORDERED: INSULIN LISPRO 100 UNIT/ML SUBCUT SCH (03:38)
[2018-07-05] MEDS ORDERED: hydrALAZINE 25 MG TABLET PO SCH (03:38)
[2018-07-05 05:23] LABS: Calcium 8.7 MG/DL (8.5-10.1)
[2018-07-05] MEDS: carBAMazepine 200 MG TABLET PO SCH ×2 (07:17→08:40)
[2018-07-05] MEDS: ALBUTEROL/IPRATROPIUM 3 ML NEB RESP TX SCH (07:21)
[2018-07-05] MEDS ORDERED: GLIMEPIRIDE 2 MG TABLET PO SCH (08:00)
[2018-07-05 08:01] VITALS: BP 163/80
[2018-07-05] MEDS: SODIUM CHLORIDE 0.45% 1,000 ML IV SCH (08:32)
[2018-07-05] MEDS: PANTOPRAZOLE 40 MG TABLET PO SCH (08:40)
[2018-07-05] MEDS: INSULIN LISPRO 100 UNIT/ML SUBCUT SCH (08:40)
[2018-07-05] MEDS: CARVEDILOL 25 MG TABLET PO SCH (08:40)
[2018-07-05] MEDS: RIVAROXABAN 15 MG TABLET PO SCH (08:41)
[2018-07-05] MEDS: ASPIRIN EC 81 MG TABLET PO SCH (08:41)
[2018-07-05] MEDS: DOCUSATE SODIUM 100 MG CAPSULE PO SCH (08:41)
[2018-07-05] MEDS ORDERED: CEFTAROLINE 300 MG in SODIUM CHLORIDE 0.9% 100 ML IV SCH ×2 (09:00→22:30)
== END 2018-07-05 12:42 | disposition home or self-care (01) | DRG 603 ==
LOC: N.ED 07:48 → N.EDINP 10:57 → N.5E 14:35
PROVIDERS: ADMIT Family Medicine; ATTEND Family Medicine

== ENCOUNTER 2020-02-20 23:52 | Observation (INO) ==
[2020-02-21] MEDS ORDERED: FUROSEMIDE 100 MG/10 ML VIAL IV STA (00:33)
[2020-02-21] MEDS ORDERED: NITROGLYCERIN 2% OINT 1 INCH/GM PACK TOP STA (00:33)
[2020-02-21] MEDS ORDERED: MORPHINE 4 MG/1 ML VIAL IV STA (00:33)
[2020-02-21] MEDS ORDERED: methylPREDNISolone SOD SUC 125 MG/2 ML VIAL IV STA (00:33)
[2020-02-21] MEDS ORDERED: ONDANSETRON 4 MG/2 ML VIAL IV STA (00:33)
[2020-02-21 00:46] LABS: Albumin 3.4 G/DL (3.4-5.0); Bilirubin,Total 0.5 MG/DL (0.2-1.0); Calcium 8.4 MG/DL (8.5-10.1); Osmolality,Calculated 302.1 MOS/KG (273-304); Potassium 4.5 MMOL/L (3.5-5.1); Total Protein 6.6 G/DL (6.4-8.3)
[2020-02-21 00:48] LABS: Basophils % 0.5 % (0.0-0.8); Eosinophils # 0.2 10*3/uL (0.0-0.87); Eosinophils % 3.9 % (0.00-10.9); Hematocrit 31.7 VOL% (42.0-52.0); Hemoglobin 10.4 GM/DL (14.0-18.0); Immature Granulocytes % 0.7 %; Immature Granulocytes Absolute 0.04 #; Lymphocytes # 1.2 10*3/uL (1.4-4.0); Lymphocytes % 18.8 % (21.2-54.2); Mean Corpuscular HGB Conc 32.8 GM/DL (32-36); Mean Corpuscular Volume 88.1 FL (87-102); Mean Platelet Volume 10.2 FL (9.6-12.0); Monocytes # 0.5 10*3/uL (0.11-0.8); Monocytes % 7.5 % (1.7-12.7); Neutrophils % 68.6 % (38.7-73.9); Platelet Count 131 T/CUMM (130-400); White Blood Count 6.1 T/CUMM (4-12)
[2020-02-21 00:57] LABS: INR 1.4; PT Patient Result 15.1 SECS (9.8-11.9)
[2020-02-21] MEDS ORDERED: ACETAMINOPHEN 325 MG TABLET PO PRN (04:41)
[2020-02-21] MEDS ORDERED: MORPHINE 4 MG/1 ML VIAL IV PRN (04:41)
[2020-02-21] MEDS ORDERED: GLUCAGON 1 MG VIAL IM PRN (04:41)
[2020-02-21] MEDS ORDERED: ONDANSETRON 4 MG/2 ML VIAL IV PRN (04:41)
[2020-02-21] MEDS ORDERED: DEXTROSE 50% 25 GM/50 ML VIAL IV PRN (04:41)
[2020-02-21] MEDS: INSULIN REGULAR 100 UNIT/ML SUBCUT SCH ×2 (05:46→13:30)
[2020-02-21] MEDS ORDERED: ENOXAPARIN 30 MG/0.3 ML SYRINGE SUBCUT SCH (06:00)
[2020-02-21] MEDS: SODIUM CHLORIDE 0.9% 1,000 ML IV SCH ×2 (06:56→07:01)
[2020-02-21 07:13] LABS: Troponin I 0.022 NG/ML (0.00-0.045)
[2020-02-21] MEDS ORDERED: FUROSEMIDE 40 MG/4 ML VIAL IV ONE (08:59)
[2020-02-21] MEDS ORDERED: PANTOPRAZOLE 40 MG TABLET PO SCH (09:00)
[2020-02-21] MEDS ORDERED: PANTOPRAZOLE 40 MG VIAL IV SCH (09:00)
[2020-02-21] MEDS ORDERED: amLODIPine 10 MG TABLET PO SCH (09:00)
[2020-02-21] MEDS ORDERED: SIMVASTATIN 40 MG TABLET PO SCH (09:00)
[2020-02-21] MEDS ORDERED: CLOPIDOGREL 75 MG TABLET PO SCH (09:00)
[2020-02-21] MEDS ORDERED: carvediloL 25 MG TABLET PO SCH (09:00)
[2020-02-21] MEDS ORDERED: DOCUSATE SODIUM 100 MG CAPSULE PO SCH (09:00)
[2020-02-21] MEDS ORDERED: RIVAROXABAN 15 MG TABLET PO SCH ×2 (09:00→17:00)
[2020-02-21] MEDS: INSULIN LISPRO 100 UNIT/ML SUBCUT SCH ×3 (09:43→17:41)
[2020-02-21 16:12] VITALS: BP 170/74
[2020-02-21] MEDS ORDERED: INSULIN GLARGINE 100 UNIT/ML SUBCUT SCH (21:00)
[2020-02-21] MEDS ORDERED: MONTELUKAST 10 MG TABLET PO SCH (21:00)
[2020-02-22] MEDS ORDERED: SIMVASTATIN 40 MG TABLET PO SCH (21:00)
== END 2020-02-21 18:25 | disposition home or self-care (01) ==
LOC: N.EDINP 23:52 → N.ED 23:52 → N.EDINP 02-21 04:15 → N.TELEN 02-21 04:39
PROVIDERS: ADMIT Family Medicine; ATTEND Family Medicine

== ENCOUNTER 2020-05-11 10:07 | Observation (INO) ==
[2020-05-11] MEDS ORDERED: POTASSIUM CHLORIDE 20 MEQ TABLET PO PRN (10:34)
[2020-05-11] MEDS ORDERED: DEXTROSE 50% 25 GM/50 ML VIAL IV PRN (10:34)
[2020-05-11] MEDS ORDERED: GLUCAGON 1 MG VIAL IM PRN (10:34)
[2020-05-11] MEDS ORDERED: POTASSIUM CHLORIDE RIDER 10 MEQ in PREMIX 1 EACH IV PRN (10:34)
[2020-05-11] MEDS ORDERED: MAGNESIUM SULF RIDER 4 GM in PREMIX 1 EACH IV PRN (10:34)
[2020-05-11] MEDS ORDERED: ACETAMINOPHEN 325 MG TABLET PO PRN (10:34)
[2020-05-11] MEDS ORDERED: MAGNESIUM SULF RIDER 2 GM in PREMIX 1 EACH IV PRN (10:34)
[2020-05-11] MEDS ORDERED: ENOXAPARIN 40 MG/0.4 ML SYRINGE SUBCUT SCH (11:00)
[2020-05-11 11:22] LABS: Basophils % 0.4 % (0.0-0.8); Eosinophils # 0.1 10*3/uL (0.0-0.87); Eosinophils % 1.1 % (0.00-10.9); Hematocrit 40.2 VOL% (42.0-52.0); Hemoglobin 12.9 GM/DL (14.0-18.0); Immature Granulocytes % 0.3 %; Immature Granulocytes Absolute 0.03 #; Lymphocytes # 1.1 10*3/uL (1.4-4.0); Lymphocytes % 10.3 % (21.2-54.2); Mean Corpuscular HGB Conc 32.1 GM/DL (32-36); Mean Corpuscular Volume 90.1 FL (87-102); Mean Platelet Volume 9.7 FL (9.6-12.0); Monocytes % 6.3 % (1.7-12.7); Neutrophils % 81.6 % (38.7-73.9); Platelet Count 182 T/CUMM (130-400); Red Blood Count 4.46 MC/CUMM (3.8-5.5); Red Cell Distribution Width 13.4 % (9.3-17.3); White Blood Count 10.5 T/CUMM (4-12)
[2020-05-11 11:53] LABS: Albumin 4.1 G/DL (3.4-5.0); Bilirubin,Total 1.3 MG/DL (0.2-1.0); Calcium 9.6 MG/DL (8.5-10.1); Potassium 4.4 MMOL/L (3.5-5.1); Total Protein 8.7 G/DL (5.0-7.5)
[2020-05-11] MEDS: LACTATED RINGERS 1,000 ML IV SCH (14:35)
[2020-05-11] MEDS: cefTRIAXone 2,000 MG in SYRINGE 1 EACH IV SCH (15:21)
[2020-05-11] MEDS: VANCOMYCIN INJ 1,500 MG in SODIUM CHLORIDE 0.9% 500 ML IV SCH (15:22)
[2020-05-11] MEDS ORDERED: traMADol 50 MG TABLET PO PRN (17:05)
[2020-05-11] MEDS: INSULIN LISPRO 100 UNIT/ML SUBCUT SCH ×3 (17:34→20:46)
[2020-05-11] MEDS: carvediloL 25 MG TABLET PO SCH (17:34)
[2020-05-11] MEDS: DOCUSATE SODIUM 100 MG CAPSULE PO SCH (20:48)
[2020-05-11] MEDS: MORPHINE 4 MG/1 ML VIAL IV PRN (21:37)
[2020-05-12] MEDS: LACTATED RINGERS 1,000 ML IV SCH ×3 (00:40→23:00)
[2020-05-12 03:28] LABS: Basophils % 0.3 % (0.0-0.8); Eosinophils # 0.1 10*3/uL (0.0-0.87); Eosinophils % 1.4 % (0.00-10.9); Hematocrit 32.8 VOL% (42.0-52.0); Hemoglobin 10.4 GM/DL (14.0-18.0); Immature Granulocytes % 0.7 %; Immature Granulocytes Absolute 0.06 #; Lymphocytes # 0.9 10*3/uL (1.4-4.0); Lymphocytes % 9.8 % (21.2-54.2); Mean Corpuscular HGB Conc 31.7 GM/DL (32-36); Mean Corpuscular Volume 91.4 FL (87-102); Mean Platelet Volume 10.1 FL (9.6-12.0); Monocytes % 8.6 % (1.7-12.7); Neutrophils % 79.2 % (38.7-73.9); Platelet Count 155 T/CUMM (130-400); Red Blood Count 3.59 MC/CUMM (3.8-5.5); Red Cell Distribution Width 13.3 % (9.3-17.3); White Blood Count 8.8 T/CUMM (4-12)
[2020-05-12 03:54] LABS: Albumin 2.8 G/DL (3.4-5.0); Bilirubin,Total 0.9 MG/DL (0.2-1.0); Calcium 8.5 MG/DL (8.5-10.1); Osmolality,Calculated 295.8 MOS/KG (273-304); Potassium 4.7 MMOL/L (3.5-5.1); Total Protein 6.5 G/DL (5.0-7.5)
[2020-05-12] MEDS: MORPHINE 4 MG/1 ML VIAL IV PRN ×3 (05:29→21:53)
[2020-05-12] MEDS: PANTOPRAZOLE 40 MG TABLET PO SCH (05:32)
[2020-05-12] MEDS: ONDANSETRON 4 MG/2 ML VIAL IV PRN ×2 (05:35→22:50)
[2020-05-12] MEDS: INSULIN LISPRO 100 UNIT/ML SUBCUT SCH ×7 (08:28→21:53)
[2020-05-12] MEDS: carvediloL 25 MG TABLET PO SCH ×2 (08:29→17:12)
[2020-05-12] MEDS: RIVAROXABAN 15 MG TABLET PO SCH (08:29)
[2020-05-12] MEDS: DOCUSATE SODIUM 100 MG CAPSULE PO SCH ×2 (08:30→21:53)
[2020-05-12] MEDS ORDERED: CLOPIDOGREL 75 MG TABLET PO SCH (09:00)
[2020-05-12] MEDS ORDERED: FUROSEMIDE 40 MG TABLET PO SCH (09:00)
[2020-05-12] MEDS: cefTRIAXone 2,000 MG in SYRINGE 1 EACH IV SCH (14:06)
[2020-05-12] MEDS: VANCOMYCIN INJ 1,500 MG in SODIUM CHLORIDE 0.9% 500 ML IV SCH (14:06)
[2020-05-12] MEDS ORDERED: DEXAMETHASONE 4 MG/1 ML VIAL IV SCH (15:30)
[2020-05-12] MEDS ORDERED: COLCHICINE 0.6 MG CAPSULE PO ONE (16:43)
[2020-05-12] MEDS: DEXAMETHASONE 4 MG/1 ML VIAL IV SCH (18:20)
[2020-05-12] MEDS ORDERED: SIMVASTATIN 40 MG TABLET PO SCH (21:00)
[2020-05-13] MEDS: LACTATED RINGERS 1,000 ML IV SCH ×2 (03:01→16:59)
[2020-05-13 04:30] LABS: Hematocrit 34.1 VOL% (42.0-52.0); Immature Granulocytes % 0.5 %; Immature Granulocytes Absolute 0.04 #; Lymphocytes # 0.4 10*3/uL (1.4-4.0); Lymphocytes % 4.9 % (21.2-54.2); Mean Corpuscular HGB Conc 32.3 GM/DL (32-36); Mean Corpuscular Volume 90.2 FL (87-102); Mean Platelet Volume 10.6 FL (9.6-12.0); Neutrophils % 92.6 % (38.7-73.9); Platelet Count 145 T/CUMM (130-400); Red Blood Count 3.78 MC/CUMM (3.8-5.5); Red Cell Distribution Width 13.1 % (9.3-17.3); White Blood Count 7.9 T/CUMM (4-12)
[2020-05-13 04:54] LABS: Albumin 2.7 G/DL (3.4-5.0); Bilirubin,Direct 0.12 MG/DL (0.0-0.20); Bilirubin,Indirect 0.8 MG/DL (0.0-1.0); Bilirubin,Total 0.9 MG/DL (0.2-1.0); Calcium 8.8 MG/DL (8.5-10.1); Osmolality,Calculated 290.1 MOS/KG (273-304); Potassium 5.2 MMOL/L (3.5-5.1); Total Protein 6.9 G/DL (5.0-7.5)
[2020-05-13 04:57] LABS: Lymphocytes 6 % (20-55); Platelet Estimate Adequate; Segmented Neutrophils 94 % (50-85); Total Cells Counted 100
[2020-05-13 04:58] LABS: Hypochromasia Slight; Microcytosis Slight
[2020-05-13] MEDS: DEXAMETHASONE 4 MG/1 ML VIAL IV SCH ×2 (05:45→16:20)
[2020-05-13] MEDS: PANTOPRAZOLE 40 MG TABLET PO SCH (06:21)
[2020-05-13] MEDS: INSULIN LISPRO 100 UNIT/ML SUBCUT SCH ×6 (08:15→16:21)
[2020-05-13] MEDS: RIVAROXABAN 15 MG TABLET PO SCH (08:19)
[2020-05-13] MEDS: DOCUSATE SODIUM 100 MG CAPSULE PO SCH (08:19)
[2020-05-13] MEDS: carvediloL 25 MG TABLET PO SCH ×2 (08:20→16:20)
[2020-05-13] MEDS: VANCOMYCIN INJ 1,500 MG in SODIUM CHLORIDE 0.9% 500 ML IV SCH (14:43)
[2020-05-13 16:07] VITALS: BP 206/82
[2020-05-13] MEDS: cefTRIAXone 2,000 MG in SYRINGE 1 EACH IV SCH (16:18)
== END 2020-05-13 18:29 | disposition home or self-care (01) ==
LOC: N.5E
PROVIDERS: ADMIT Family Medicine; ATTEND Family Medicine

== ENCOUNTER 2021-12-15 17:17 | Observation (INO) ==
[2021-12-15] MEDS ORDERED: ASPIRIN 325 MG TABLET PO STA (19:19)
[2021-12-15] MEDS ORDERED: ALBUTEROL/IPRATROPIUM 3 ML NEB RESP TX STA (19:19)
[2021-12-15] MEDS ORDERED: ONDANSETRON 4 MG/2 ML VIAL IV ONE (19:20)
[2021-12-15 19:46] LABS: Basophils % 0.5 % (0.0-0.8); Eosinophils # 0.4 10*3/uL (0.0-0.87); Eosinophils % 5.2 % (0.00-10.9); Hematocrit 36.7 VOL% (42.0-52.0); Immature Granulocytes % 0.5 %; Immature Granulocytes Absolute 0.04 #; Lymphocytes # 0.6 10*3/uL (1.4-4.0); Lymphocytes % 6.6 % (21.2-54.2); Mean Corpuscular HGB Conc 32.7 GM/DL (32-36); Mean Corpuscular Volume 87.2 FL (87-102); Mean Platelet Volume 9.1 FL (9.6-12.0); Monocytes # 0.5 10*3/uL (0.11-0.8); Monocytes % 5.6 % (1.7-12.7); Neutrophils % 81.6 % (38.7-73.9); Platelet Count 160 T/CUMM (130-400); Red Blood Count 4.21 MC/CUMM (3.8-5.5); Red Cell Distribution Width 13.7 % (9.3-17.3); White Blood Count 8.5 T/CUMM (4-12)
[2021-12-15 19:58] LABS: INR 1.4
[2021-12-15 20:11] LABS: Albumin 3.7 G/DL (3.4-5.0); Bilirubin,Total 0.8 MG/DL (0.20-1.00); Calcium 8.8 MG/DL (8.5-10.1); Potassium 5.3 MMOL/L (3.5-5.1); Total Protein 7.1 G/DL (6.4-8.2)
[2021-12-15] MEDS ORDERED: methylPREDNISolone SOD SUC 125 MG/2 ML VIAL IV STA (20:14)
[2021-12-15] MEDS ORDERED: cefTRIAXone 1,000 MG in SODIUM CHLORIDE 0.9% 100 ML IV STA (20:14)
[2021-12-15] MEDS ORDERED: AZITHROMYCIN INJ 500 MG in SODIUM CHLORIDE 0.9% 250 ML IV STA (20:14)
[2021-12-15] MEDS ORDERED: PROMETHAZINE 25 MG/1 ML VIAL IM PRN (20:24)
[2021-12-15] MEDS ORDERED: ACETAMINOPHEN 325 MG TABLET PO PRN (20:24)
[2021-12-15] MEDS ORDERED: ONDANSETRON 4 MG/2 ML VIAL IV PRN (20:24)
[2021-12-15] MEDS ORDERED: hydrALAZINE 20 MG/1 ML VIAL ONE (20:33)
[2021-12-15] MEDS ORDERED: hydrALAZINE 20 MG/1 ML VIAL IV STA (20:33)
[2021-12-15] MEDS: SODIUM CHLORIDE 0.9% 1,000 ML IV SCH (22:15)
[2021-12-15] MEDS: DOCUSATE SODIUM 100 MG CAPSULE PO SCH (23:01)
[2021-12-15] MEDS: ALBUTEROL 2.5 MG/3 ML NEB RESP TX SCH ×2 (23:46→23:47)
[2021-12-16] MEDS: ALBUTEROL 2.5 MG/3 ML NEB RESP TX SCH ×6 (00:38→19:25)
[2021-12-16] MEDS ORDERED: hydrALAZINE 20 MG/1 ML VIAL ONE (04:29)
[2021-12-16] MEDS ORDERED: hydrALAZINE 20 MG/1 ML VIAL IV STA (04:34)
[2021-12-16 04:36] LABS: Basophils % 0.3 % (0.0-0.8); Eosinophils % 0.3 % (0.00-10.9); Hematocrit 35.8 VOL% (42.0-52.0); Hemoglobin 11.5 GM/DL (14.0-18.0); Immature Granulocytes Absolute 0.07 #; Lymphocytes # 0.4 10*3/uL (1.4-4.0); Lymphocytes % 5.3 % (21.2-54.2); Mean Corpuscular HGB Conc 32.1 GM/DL (32-36); Mean Corpuscular Volume 88.6 FL (87-102); Mean Platelet Volume 9.3 FL (9.6-12.0); Monocytes # 0.1 10*3/uL (0.11-0.8); Monocytes % 0.9 % (1.7-12.7); Neutrophils % 92.2 % (38.7-73.9); Platelet Count 148 T/CUMM (130-400); Red Blood Count 4.04 MC/CUMM (3.8-5.5); Red Cell Distribution Width 13.6 % (9.3-17.3); White Blood Count 6.7 T/CUMM (4-12)
[2021-12-16 05:05] LABS: Eosinophils 1 % (0-10); Hypochromia Slight; Lymphocytes 5 % (20-55); Microcytosis Slight; Platelet Estimate Adequate; Total Cells Counted 100
[2021-12-16 05:11] LABS: Albumin 3.3 G/DL (3.4-5.0); Bilirubin,Total 0.6 MG/DL (0.20-1.00); Calcium 9.1 MG/DL (8.5-10.1); Osmolality,Calculated 298.5 MOS/KG (273-304); Potassium 5.7 MMOL/L (3.5-5.1); Total Protein 6.7 G/DL (6.4-8.2)
[2021-12-16] MEDS ORDERED: GLUCAGON 1 MG VIAL IM PRN ×2 (06:18→06:28)
[2021-12-16] MEDS ORDERED: DEXTROSE 10% 250 ML BAG IV PRN (06:18)
[2021-12-16] MEDS ORDERED: MAGNESIUM SULF RIDER 4 GM/100 ML PREMIX IV PRN (06:28)
[2021-12-16] MEDS ORDERED: MAGNESIUM SULF RIDER 2 GM/50 ML PREMIX IV PRN (06:28)
[2021-12-16] MEDS ORDERED: DEXTROSE 50% 25 GM/50 ML VIAL IV PRN (06:28)
[2021-12-16] MEDS: INSULIN LISPRO 100 UNIT/ML SUBCUT SCH ×4 (08:32→21:48)
[2021-12-16] MEDS: RIVAROXABAN 15 MG TABLET PO SCH ×2 (08:49→09:54)
[2021-12-16] MEDS: carvediloL 25 MG TABLET PO SCH ×3 (08:50→21:51)
[2021-12-16] MEDS: cloNIDine 0.1 MG TABLET PO SCH ×4 (08:50→21:50)
[2021-12-16] MEDS: DOCUSATE SODIUM 100 MG CAPSULE PO SCH ×3 (08:50→21:50)
[2021-12-16] MEDS: INSULIN GLARGINE 100 UNIT/ML SUBCUT SCH ×3 (08:51→21:49)
[2021-12-16] MEDS: PANTOPRAZOLE 40 MG TABLET PO SCH ×2 (08:51→09:51)
[2021-12-16] MEDS: CLOPIDOGREL 75 MG TABLET PO SCH ×2 (08:51→09:51)
[2021-12-16] MEDS ORDERED: ENOXAPARIN 30 MG/0.3 ML SYRINGE SUBCUT SCH (09:00)
[2021-12-16] MEDS ORDERED: INFLUENZA VIRUS VACCINE 0.5 ML SYRINGE IM ONE (09:21)
[2021-12-16] MEDS: SODIUM CHLORIDE 0.9% 1,000 ML IV SCH (09:52)
[2021-12-16] MEDS: SODIUM ZIRCONIUM CYCLOSILICATE 10 GM PACK PO SCH (12:32)
[2021-12-16] MEDS ORDERED: GABAPENTIN 300 MG CAPSULE PO SCH (21:00)
[2021-12-16] MEDS ORDERED: SIMVASTATIN 40 MG TABLET PO SCH (21:00)
[2021-12-16] MEDS ORDERED: MONTELUKAST 10 MG TABLET PO SCH (21:00)
[2021-12-16] MEDS ORDERED: ASPIRIN CHEW 81 MG TABLET PO ONE (23:00)
[2021-12-17] MEDS: ALBUTEROL 2.5 MG/3 ML NEB RESP TX SCH ×3 (00:09→07:25)
[2021-12-17] MEDS: SODIUM CHLORIDE 0.9% 1,000 ML IV SCH (04:23)
[2021-12-17 04:50] LABS: Basophils % 0.1 % (0.0-0.8); Hematocrit 32.6 VOL% (42.0-52.0); Hemoglobin 10.5 GM/DL (14.0-18.0); Immature Granulocytes % 0.6 %; Immature Granulocytes Absolute 0.08 #; Lymphocytes # 0.5 10*3/uL (1.4-4.0); Lymphocytes % 3.7 % (21.2-54.2); Mean Corpuscular HGB Conc 32.2 GM/DL (32-36); Mean Corpuscular Volume 89.1 FL (87-102); Mean Platelet Volume 9.6 FL (9.6-12.0); Monocytes # 0.7 10*3/uL (0.11-0.8); Monocytes % 5.1 % (1.7-12.7); Neutrophils % 90.5 % (38.7-73.9); Platelet Count 158 T/CUMM (130-400); Red Blood Count 3.66 MC/CUMM (3.8-5.5); Red Cell Distribution Width 13.6 % (9.3-17.3); White Blood Count 13.2 T/CUMM (4-12)
[2021-12-17 05:09] LABS: Calcium 8.2 MG/DL (8.5-10.1); Osmolality,Calculated 303.4 MOS/KG (273-304); Potassium 5.3 MMOL/L (3.5-5.1); Risk Ratio 4.97; VLDL Cholesterol 21.8 MG/DL
[2021-12-17 05:17] LABS: Hypochromia Slight; Lymphocytes 5 % (20-55); Platelet Estimate Adequate; Total Cells Counted 100
[2021-12-17 05:18] LABS: Microcytosis Slight
[2021-12-17] MEDS: INSULIN LISPRO 100 UNIT/ML SUBCUT SCH (07:30)
[2021-12-17 08:02] VITALS: BP 156/57
[2021-12-17] MEDS: cloNIDine 0.1 MG TABLET PO SCH (09:22)
[2021-12-17] MEDS: SODIUM ZIRCONIUM CYCLOSILICATE 10 GM PACK PO SCH (09:22)
[2021-12-17] MEDS: CLOPIDOGREL 75 MG TABLET PO SCH (09:22)
[2021-12-17] MEDS: RIVAROXABAN 15 MG TABLET PO SCH (09:22)
[2021-12-17] MEDS: DOCUSATE SODIUM 100 MG CAPSULE PO SCH (09:23)
[2021-12-17] MEDS: carvediloL 25 MG TABLET PO SCH (09:23)
[2021-12-17] MEDS: INSULIN GLARGINE 100 UNIT/ML SUBCUT SCH (09:23)
[2021-12-17] MEDS: PANTOPRAZOLE 40 MG TABLET PO SCH (09:23)
[2021-12-17] MEDS ORDERED: SODIUM ZIRCONIUM CYCLOSILICATE 10 GM PACK PO SCH (11:00)
== END 2021-12-17 10:52 | disposition home or self-care (01) ==
LOC: N.ED 17:17 → N.EDINP 17:17 → N.2W 12-16 07:04
PROVIDERS: ADMIT Family Medicine; ATTEND Family Medicine

== ENCOUNTER 2022-01-22 09:13 | Observation (INO) ==
[2022-01-22] MEDS ORDERED: BISACODYL 5 MG TABLET PO PRN (09:14)
[2022-01-22] MEDS ORDERED: ACETAMINOPHEN 325 MG TABLET PO PRN (09:14)
[2022-01-22] MEDS ORDERED: MORPHINE 2 MG/1 ML SYRINGE IV PRN (09:14)
[2022-01-22] MEDS ORDERED: ALUMINUM/MAGNES/SIMETH MAX STR 30 ML UDCUP PO PRN (09:14)
[2022-01-22] MEDS ORDERED: ZALEPLON 5 MG CAPSULE PO PRN (09:14)
[2022-01-22] MEDS ORDERED: ONDANSETRON 4 MG/2 ML VIAL IV PRN (09:14)
[2022-01-22] MEDS ORDERED: LACTULOSE 20 GM/30 ML UDCUP PO PRN (09:14)
[2022-01-22] MEDS ORDERED: CALCIUM CARBONATE CHEW 500 MG TABLET PO PRN (09:14)
[2022-01-22] MEDS ORDERED: SIMETHICONE CHEW 125 MG TABLET PO PRN (09:14)
[2022-01-22] MEDS ORDERED: ACETYLCYSTEINE 600 MG CAPSULE PO ONE (13:56)
[2022-01-22 14:27] LABS: Basophils % 0.2 % (0.0-0.8); Eosinophils # 0.4 10*3/uL (0.0-0.87); Hematocrit 34.1 VOL% (42.0-52.0); Hemoglobin 10.8 GM/DL (14.0-18.0); Immature Granulocytes % 1.6 %; Immature Granulocytes Absolute 0.17 #; Lymphocytes % 9.7 % (21.2-54.2); Mean Corpuscular HGB Conc 31.7 GM/DL (32-36); Mean Corpuscular Volume 89.7 FL (87-102); Mean Platelet Volume 9.3 FL (9.6-12.0); Monocytes # 0.6 10*3/uL (0.11-0.8); Monocytes % 5.7 % (1.7-12.7); Neutrophils % 78.8 % (38.7-73.9); Platelet Count 200 T/CUMM (130-400); White Blood Count 10.5 T/CUMM (4-12)
[2022-01-22 14:49] LABS: Albumin 2.6 G/DL (3.4-5.0); Bilirubin,Total 0.4 MG/DL (0.20-1.00); Osmolality,Calculated 297.4 MOS/KG (273-304); Potassium 5.3 MMOL/L (3.5-5.1); Total Protein 6.4 G/DL (6.4-8.2)
[2022-01-22] MEDS: SODIUM CHLORIDE 0.9% 1,000 ML IV SCH (15:22)
[2022-01-22] MEDS: ENOXAPARIN 30 MG/0.3 ML SYRINGE SUBCUT SCH (16:54)
[2022-01-22] MEDS: carvediloL 25 MG TABLET PO SCH (16:55)
[2022-01-22] MEDS: MONTELUKAST 10 MG TABLET PO SCH (20:42)
[2022-01-22] MEDS: SIMVASTATIN 40 MG TABLET PO SCH (20:42)
[2022-01-22] MEDS: GABAPENTIN 300 MG CAPSULE PO SCH (20:43)
[2022-01-22] MEDS: ACETYLCYSTEINE 600 MG CAPSULE PO SCH (20:43)
[2022-01-22] MEDS ORDERED: SIMVASTATIN 40 MG TABLET PO SCH (21:00)
[2022-01-22] MEDS: LABETALOL 20 MG/4 ML SYRINGE IV PRN (23:51)
[2022-01-23] MEDS: SODIUM CHLORIDE 0.9% 1,000 ML IV SCH ×4 (01:30→18:40)
[2022-01-23 05:16] LABS: Basophils % 0.3 % (0.0-0.8); Eosinophils # 0.4 10*3/uL (0.0-0.87); Eosinophils % 5.4 % (0.00-10.9); Hematocrit 32.3 VOL% (42.0-52.0); Hemoglobin 10.1 GM/DL (14.0-18.0); Immature Granulocytes % 2.1 %; Immature Granulocytes Absolute 0.16 #; Lymphocytes # 0.9 10*3/uL (1.4-4.0); Lymphocytes % 12.1 % (21.2-54.2); Mean Corpuscular HGB Conc 31.3 GM/DL (32-36); Mean Platelet Volume 9.2 FL (9.6-12.0); Monocytes # 0.5 10*3/uL (0.11-0.8); Neutrophils % 74.1 % (38.7-73.9); Platelet Count 179 T/CUMM (130-400); Red Blood Count 3.59 MC/CUMM (3.8-5.5); White Blood Count 7.8 T/CUMM (4-12)
[2022-01-23] MEDS: LABETALOL 20 MG/4 ML SYRINGE IV PRN ×3 (05:39→23:40)
[2022-01-23 05:43] LABS: Potassium 5.5 MMOL/L (3.5-5.1)
[2022-01-23] MEDS ORDERED: ASPIRIN 325 MG TABLET PO ONE (06:00)
[2022-01-23] MEDS ORDERED: SODIUM CHLORIDE 0.9% 1,000 ML IV SCH (06:00)
[2022-01-23] MEDS ORDERED: DIAZEPAM 5 MG TABLET PO ONE (06:00)
[2022-01-23] MEDS ORDERED: POTASSIUM CHLORIDE RIDER 10 MEQ/100 ML PREMIX IV PRN (06:00)
[2022-01-23] MEDS ORDERED: diphenhydrAMINE CAP 50 MG CAPSULE PO ONE (06:00)
[2022-01-23] MEDS ORDERED: MAGNESIUM SULF RIDER 2 GM/50 ML PREMIX IV PRN (06:00)
[2022-01-23] MEDS: hydrALAZINE 20 MG/1 ML VIAL IV PRN ×2 (08:43→08:57)
[2022-01-23] MEDS ORDERED: hydrALAZINE 20 MG/1 ML VIAL IV ONE (08:55)
[2022-01-23] MEDS ORDERED: fentaNYL 100 MCG/2 ML VIAL ONE (11:00)
[2022-01-23] MEDS ORDERED: MIDAZOLAM 2 MG/2 ML VIAL ONE (11:00)
[2022-01-23] MEDS ORDERED: methylPREDNISolone SOD SUC 125 MG/2 ML VIAL ONE (11:02)
[2022-01-23] MEDS ORDERED: diphenhydrAMINE 50 MG/1 ML VIAL ONE (11:02)
[2022-01-23] MEDS ORDERED: GLUCAGON 1 MG VIAL IM PRN (12:03)
[2022-01-23] MEDS ORDERED: DEXTROSE 10% 250 ML BAG IV PRN (12:15)
[2022-01-23] MEDS: CLOPIDOGREL 75 MG TABLET PO SCH (13:43)
[2022-01-23] MEDS: ACETYLCYSTEINE 600 MG CAPSULE PO SCH ×2 (13:43→20:50)
[2022-01-23] MEDS: GABAPENTIN 300 MG CAPSULE PO SCH ×2 (13:43→20:50)
[2022-01-23] MEDS: PANTOPRAZOLE 40 MG TABLET PO SCH (13:44)
[2022-01-23] MEDS: carvediloL 25 MG TABLET PO SCH ×2 (13:44→17:24)
[2022-01-23] MEDS: INSULIN REGULAR 100 UNIT/ML SUBCUT SCH ×2 (17:21→20:50)
[2022-01-23] MEDS: ENOXAPARIN 30 MG/0.3 ML SYRINGE SUBCUT SCH (17:24)
[2022-01-23] MEDS: SIMVASTATIN 40 MG TABLET PO SCH (20:49)
[2022-01-23] MEDS: MONTELUKAST 10 MG TABLET PO SCH (20:50)
[2022-01-24] MEDS ORDERED: INSULIN REGULAR 100 UNIT/ML SUBCUT ONE (00:45)
[2022-01-24] MEDS: SODIUM CHLORIDE 0.9% 1,000 ML IV SCH (04:53)
[2022-01-24] MEDS: hydrALAZINE 20 MG/1 ML VIAL IV PRN (04:54)
[2022-01-24 05:25] LABS: Calcium 7.9 MG/DL (8.5-10.1); Osmolality,Calculated 304.1 MOS/KG (273-304); Potassium 5.6 MMOL/L (3.5-5.1)
[2022-01-24 05:43] LABS: Hematocrit 33.9 VOL% (42.0-52.0); Hemoglobin 10.5 GM/DL (14.0-18.0); Immature Granulocytes Absolute 0.07 #; Lymphocytes # 0.3 10*3/uL (1.4-4.0); Lymphocytes % 4.6 % (21.2-54.2); Mean Corpuscular Volume 90.4 FL (87-102); Mean Platelet Volume 9.3 FL (9.6-12.0); Monocytes # 0.1 10*3/uL (0.11-0.8); Monocytes % 0.8 % (1.7-12.7); Neutrophils % 93.6 % (38.7-73.9); Platelet Count 158 T/CUMM (130-400); Red Blood Count 3.75 MC/CUMM (3.8-5.5); Red Cell Distribution Width 12.9 % (9.3-17.3); White Blood Count 7.2 T/CUMM (4-12)
[2022-01-24 06:09] LABS: Lymphocytes 9 % (20-55); Platelet Estimate Adequate; Total Cells Counted 100
[2022-01-24] MEDS: CLOPIDOGREL 75 MG TABLET PO SCH (09:55)
[2022-01-24] MEDS: GABAPENTIN 300 MG CAPSULE PO SCH (09:55)
[2022-01-24] MEDS: ACETYLCYSTEINE 600 MG CAPSULE PO SCH (09:55)
[2022-01-24] MEDS: carvediloL 25 MG TABLET PO SCH (09:55)
[2022-01-24] MEDS: PANTOPRAZOLE 40 MG TABLET PO SCH (09:55)
[2022-01-24] MEDS: INSULIN REGULAR 100 UNIT/ML SUBCUT SCH ×2 (09:56→12:30)
[2022-01-24 13:34] VITALS: BP 175/61
== END 2022-01-24 14:47 | disposition home or self-care (01) ==
LOC: N.TELEN 09:13 → N.CL 13:56 → N.TELEN 13:56
PROVIDERS: ADMIT Internal Medicine Cardiovascular Disease; ATTEND Internal Medicine Cardiovascular Disease
PROC: CLCCHCL (ICD-10-PCS; 2022-01-23 09:15)